=== PATIENT | male | born 1950 | race Caucasian/White ===

== ENCOUNTER → 2019-07-29 | Outpatient (CLI) | payer MEDICARE ==
[2019-07-29 08:20] LABS: African American GFR (CKD) >90 (>60 ml/min/1.73 sqM); Blood Urea Nitrogen 15 mg/dL (9-20)
--- NOTE | 2019-07-29 13:41 | CT ---
EXAMINATION TYPE: CT angio neck DATE OF EXAM: 07/29/2019 HISTORY: Carotid stenosis per order. COMPARISON: NONE CT DLP: 451 mGycm. Automated Exposure Control for Dose Reduction was Utilized. TECHNIQUE: CTA scan of the neck is performed with IV Contrast, patient injected with 65 mL of Isovue 370, axial images are obtained, coronal and sagittal reformatted images are reviewed. Three-D recons tructed images are created on an independent workstation and reviewed. FINDINGS: Carotid/Vascular Structures: Mild peripheral plaque in aortic arch . Normal 3 vessel origin from aort ic arch. Normal origin right common carotid artery from brachiocephalic artery. No significant plaque or stenosis along course of right common carotid artery. Moderate to severe plaque carotid bulb with complete occlusion of right internal carotid artery at its origin. Mild to moderate plaque extensive right external carotid artery without significant stenosis. No significant plaque or stenosis left common carotid artery. Moderate to severe calcified plaque lef t carotid bulb with luminal narrowing down to 2.6 mm with some poststenotic dilatation up to 9.2 mm a xial image 33. There is moderate mixed plaque distal to this with narrowing down to 1.7 mm AP diamete r axial image 27. Distal to this internal carotid artery reconstitutes to 4.9 mm image 20. Slight tor tuous course with mild calcified plaque in the petrous segment. There is dominant left vertebral artery with [id number] distal calcified plaque. No significant stenosis is evident. Other: Moderate to severe multilevel spurring in the cervical thoracic spine. IMPRESSION: 1. Complete occlusion right internal carotid artery at its origin. 2. Significant stenosis proximal left internal carotid artery near origin around 70% with poststenoti c dilatation. Second area of significant stenosis estimated 65% in the proximal left internal carotid artery.
== END | disposition home or self-care (01) ==
LOC: RADCTMAIN 07:33
PROVIDERS: ATTEND Thoracic Surgery (Cardiothoracic Vascular Surgery)
DX: I65.23 Occlusion and stenosis of bilateral carotid arteries (principal); I72.0 Aneurysm of carotid artery
CPT/HCPCS: 82565; 84520; 70498; 36415; Q9967

== ENCOUNTER → 2019-08-12 | Outpatient (CLI) | payer MEDICARE, OTHER ==
--- NOTE | 2019-08-12 19:40 | ECHOF ---
Referral Reason:R011 cardiac murmur MEASUREMENTS -------- HEIGHT: 180.3 cm WEIGHT: 131.5 kg BP: RVIDd: 3.0 cm (< 3.3) IVSd: 1.5 cm (0.6 - 1.1) LVIDd: 3.5 cm (3.9 - 5.3) LVPWd: 1.5 cm (0.6 - 1.1) IVSs: 2.3 cm LVIDs: 1.5 cm LVPWs: 1.9 cm LAESV Index (A-L): 15.71 ml/m Ao Diam: 2.8 cm (2.0 - 3.7) AV Cusp: 0.8 cm (1.5 - 2.6) LA Diam: 3.1 cm (2.7 - 3.8) MV EXCURSION: 9.588 mm (> 18.000) MV EF SLOPE: 65 mm/s (70 - 150) EPSS: 0.7 cm MV E Luis A: 0.70 m/s MV DecT: 151 ms MV A Luis A: 0.73 m/s MV E/A Ratio: 0.95 AV maxP.43 mmHg AV meanP.14 mmHg RAP: 5.00 mmHg RVSP: 11.42 mmHg TAPSE: 28.63 mm FINDINGS -------- Sinus rhythm. This was a technically good study. The left ventricular size is normal. There is moderate concentric left ventricular hypertrophy. O verall left ventricular systolic function is normal with, an EF between 55 - 60 %. The diastolic fi lling pattern is normal for the age of the patient 12.98. The right ventricle is normal in size. The left atrial size is normal. Normal LA size by volume 22+/-6 ml/m2. The right atrial size is normal. Aortic valve is trileaflet and is mildly thickened. There is mild aortic stenosis present. Peak/m spring gradient across the Aortic Valve is 18.43mmHg / 15.14mmHg. The mitral valve is normal. The mitral valve leaflets are mildly thickened. Mild mitral regurgita tion is present. The tricuspid valve appears structurally normal. Mild tricuspid regurgitation present. Right vent ricular systolic pressure is normal at < 35 mmHg. Trace/mild (physiologic) pulmonic regurgitation. The aortic root size is normal. Normal inferior vena cava with normal inspiratory collapse consistent with estimated right atrial pre ssure of 5 mmHg. There is no pericardial effusion. CONCLUSIONS -------- 1. Sinus rhythm. 2. This was a technically good study. 3. The left ventricular size is normal. 4. There is moderate concentric left ventricular hypertrophy. 5. Overall left ventricular systolic function is normal with, an EF between 55 - 60 %. 6. The diastolic filling pattern is normal for the age of the patient 12.98 7. The right ventricle is normal in size. 8. The left atrial size is normal. 9. Normal LA size by volume 22+/-6 ml/m2. 10. The right atrial size is normal. 11. Aortic valve is trileaflet and is mildly thickened. 12. There is mild aortic stenosis present. 13. Peak/mean gradient across the Aortic Valve is 18.43mmHg / 15.14mmHg. 14. The mitral valve is normal. 15. The mitral valve leaflets are mildly thickened. 16. Mild mitral regurgitation is present. 17. The tricuspid valve appears structurally normal. 18. Mild tricuspid regurgitation present. 19. Right ventricular systolic pressure is normal at < 35 mmHg. 20. Trace/mild (physiologic) pulmonic regurgitation. 21. The aortic root size is normal. 22. Normal inferior vena cava with normal inspiratory collapse consistent with estimated right atrial pressure of 5 mmHg. 23. There is no pericardial effusion. STITCHER TAPE CONTROLLED MACHINE: Nadeen Cervantes REINALDO
== END | disposition home or self-care (01) ==
LOC: RADECHMAIN 11:18
PROVIDERS: ATTEND Family Medicine
DX: I08.1 Rheumatic disorders of both mitral and tricuspid valves (principal)
CPT/HCPCS: 93306

== ENCOUNTER 2023-03-18 19:02 | Inpatient (IN) | payer MEDICARE, OTHER ==
[2023-03-18] MEDS ORDERED: ASPIRIN 81 MG PO STA (19:09)
[2023-03-18] MEDS ORDERED: DEXTROSE 5% IN WATER 100 ML with AMIODARONE 150 MG IV ONE (19:30)
[2023-03-18] MEDS ORDERED: AMIODARONE 360 MG in DEXTROSE 5% IN WATER 200 ML IV ONE ×2 (19:30)
--- NOTE | 2023-03-18 19:44 | XR ---
EXAMINATION TYPE: XR chest 2V DATE OF EXAM: 03/18/2023 COMPARISON: None INDICATION: Chest pain TECHNIQUE: Frontal and lateral views of the chest are obtained. FINDINGS: The heart size is mildly prominent. The pulmonary vasculature is normal. The lungs are clear. IMPRESSION: 1. No acute pulmonary process. 2. Borderline cardiomegaly
[2023-03-18] MEDS ORDERED: SODIUM CHLORIDE 0.9% 1,000 ML IV ONE (19:47)
[2023-03-18 19:52] LABS: Basophils # (A) 0.1 k/uL (0-0.2); Basophils % (A) 1 %; Eosinophils # (A) 0.3 k/uL (0-0.7); Eosinophils % (A) 3 %; HCT 47.2 % (39.0-53.0); HGB 15.2 gm/dL (13.0-17.5); Lymphocytes # (A) 2.7 k/uL (1.0-4.8); Lymphocytes % (A) 28 %; MCH 27.5 pg (25.0-35.0); MCHC 32.3 g/dL (31.0-37.0); MCV 85.2 fL (80.0-100.0); Mean Platelet Volume 7.6; Monocytes # (A) 0.9 k/uL (0-1.0); Monocytes % (A) 10 %; Neutrophils # (A) 5.3 k/uL (1.3-7.7); Neutrophils % (A) 55 %; Platelet Count 233 k/uL (150-450); RBC 5.55 m/uL (4.30-5.90); RDW 13.4 % (11.5-15.5); WBC 9.6 k/uL (3.8-10.6)
[2023-03-18 20:00] LABS: ALT 74 U/L (4-49); AST 76 U/L (17-59); African American GFR (CKD) >90 (>60 ml/min/1.73 sqM); Albumin 3.8 g/dL (3.5-5.0); Alkaline Phosphatase 61 U/L (38-126); Anion Gap 11 mmol/L; Blood Urea Nitrogen 17 mg/dL (9-20); Calcium 9.1 mg/dL (8.4-10.2); Carbon Dioxide 25 mmol/L (22-30); Chloride 101 mmol/L (98-107); Glucose 117 mg/dL (74-99); Non-African American GFR(CKD) 85 (>60 ml/min/1.73 sqM); Potassium 3.6 mmol/L (3.5-5.1); Sodium 137 mmol/L (137-145); Total Bilirubin 0.5 mg/dL (0.2-1.3); Total Protein 6.5 g/dL (6.3-8.2)
[2023-03-18 20:04] LABS: INR 1.5 (<1.2); Partial Thromboplastin Time 24.7 sec (22.0-30.0); Prothrombin Time 14.7 sec (9.0-12.0)
--- NOTE | 2023-03-18 20:52 | CT ---
EXAMINATION TYPE: CT brain wo con DATE OF EXAM: 03/18/2023 COMPARISON: None INDICATION: CPR resus DLP: 1229.4 mGycm, Automated exposure control for dose reduction was used. CONTRAST: None CT of the brain is performed utilizing 3 mm thick sections through the posterior fossa and 3 mm thick sections through the remaining calvarium. Study is performed within 24 hours of arrival to the hosp ital. No abnormal hyperdensity is present to suggest an acute intracranial hemorrhage. No mass lesion is evident. No acute infarcts are evident. Ventricles and sulci are mildly prominent for the patient age. Paranasal sinuses and mastoid air cells within the [id number] are clear. IMPRESSIONS: 1. No acute intracranial process. Follow-up MRI can be performed as clinically indicated.
--- NOTE | 2023-03-18 20:59 | ED ---
General Adult HPI - General Chief complaint: Arrhythmia/Palpitations Stated complaint: AFib Time Seen by Provider: 03/18/23 19:08 Source: patient, RN notes reviewed, old records reviewed Mode of arrival: EMS Limitations: no limitations - History of Present Illness Initial comments: Patient is a 73-year-old male who presents emergency Department complaining of a V. fib arrest. Patient had a witnessed arrest at a baseball game. Was seen his PCP earlier today and was checked out okay. Does have a history of complete occlusion of the right internal carotid artery artery. Patient has significant stenosis of the left internal carotid artery. Patient believes he may be on Coumadin.. Also has a history of hyperlipidemia and may be on blood thinning medication Coumadin. Patient also states he takes a water pill as needed. Has no other acute complaints at this time. States he remembers going to the baseball game and then suddenly he does remember anything until the ambulance ride here. He is somewhat repetitive statements. He does know who he is, where he is coming time of year. He endorses some mild chest discomfort at the site of the pacer pads were he was defibrillated by EMS. Patient was a witnessed arrest per EMS, and bystander CPR was immediately started. AED was connected and he was shocked twice and seen by the ED. EMS arrived within 5 minutes of patient initially being down, connected to their monitor and saw ventricular fibrillation and defibrillated at 200 J. The patient had return of spontaneous circulation at this time. He was alert and oriented 3. Patient did not require any medications. Total down time estimated to be between 4 and 5 minutes per EMS. Presents for further evaluation at this time. Currently has minimal complaints. Initially EMS told me that patient was not shocked by the AED but they found the and corrected her previous statement after discussion with family that the patient was shocked twice by the AED. Patient's family was able to provide more detail regarding the situation at a baseball game. He was sitting in his folding chair watching the game when suddenly his head went back and he was unresponsive. They come on the ground by standard CPR was immediately started, 911 was immediately called, an AED was applied and he was shocked a total of 2 times by the AED prior to EMS arrival. - Related Data Home Medications Medication Instructions Recorded Confirmed Atorvastatin [Lipitor] 80 mg PO DAILY 03/18/23 03/18/23 Losartan Potassium [Cozaar] 25 mg PO DAILY 03/18/23 03/18/23 Naproxen [Naprosyn] 500 mg PO BID 03/18/23 03/18/23 [place] 450mg 450 mg PO BID 03/18/23 03/18/23 Vit C/E/Zn/Coppr/Lutein/Zeaxan 1 cap PO BID 03/18/23 03/18/23 [Preservision Areds 2 Softgel] hydroCHLOROthiazide [Hydrodiuril] 25 mg PO DAILY 03/18/23 03/18/23 Allergies Allergy/AdvReac Type Severity Reaction Status Date / Time Penicillins Allergy Rash/Hives Verified 03/18/23 20:58 Review of Systems ROS Statement: Those systems with pertinent positive or pertinent negative responses have been documented in the HPI. Review of Systems: CONST: Denies fever EYES: Denies blurry vision ENT: Denies nasal congestion C/V: Endorses very mild chest pain at the site of where patient was defibrillated. RESP: Denies shortness of breath GI: Denies abdominal pain : Denies dysuria SKIN: Denies rash. MSK: Denies joint pain. NEURO: Denies headache ROS Other: All systems not noted in ROS Statement are negative. 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 HEAD: Normal with no signs of head trauma. EYES: PERRLA, EOMI, conjunctiva normal, no discharge. Pupils are 3 mm equal bilaterally. ENT: Hearing grossly intact, normal oropharynx. RESPIRATORY: Clear breath sounds bilaterally. No wheezes, rales, or rhonchi. C/V: Irregular rate and rhythm. S1 and S2 auscultated, mild peripheral edema, peripheral pulses 2+ and intact throughout ABD: Abd is soft, nontender, nondistended EXT: Normal range of motion, no obvious deformity SKIN: Patient has what appears to be a mild burn walter located over the sternum. This is where he is complaining of pain. Likely from ADD or defibrillation in the field. NEURO: Alert and oriented x 4. Cranial nerves II-XII intact. No focal sensory or strength deficits. Limitations: no limitations Course Vital Signs 03/18/23 03/18/23 03/18/23 19:02 19:07 19:10 Temperature 98.3 F Pulse Rate 135 H 106 H 115 H Pulse Rate [ Plate Inspector ] Respiratory 18 21 Rate Blood Pressure 111/86 111/86 O2 Sat by Pulse 95 95 96 Oximetry 03/18/23 03/18/23 03/18/23 19:20 19:36 19:40 Temperature Pulse Rate 107 H 99 Pulse Rate [ 115 H Plate Inspector ] Respiratory 18 Rate Blood Pressure 111/73 88/78 O2 Sat by Pulse 97 95 95 Oximetry 03/18/23 03/18/23 03/18/23 19:46 19:50 19:59 Temperature Pulse Rate 97 98 Pulse Rate [ Plate Inspector ] Respiratory 18 18 Rate Blood Pressure 89/72 105/64 O2 Sat by Pulse 96 95 97 Oximetry 03/18/23 03/18/23 03/18/23 20:00 20:30 20:40 Temperature Pulse Rate 105 H 97 Pulse Rate [ Plate Inspector ] Respiratory 14 13 Rate Blood Pressure 99/64 131/84 125/85 O2 Sat by Pulse 98 98 Oximetry 03/18/23 03/18/23 03/18/23 20:47 20:50 21:32 Temperature Pulse Rate 109 H 113 H 108 H Pulse Rate [ Plate Inspector ] Respiratory 18 15 20 Rate Blood Pressure 117/87 117/87 134/96 O2 Sat by Pulse 97 96 93 L Oximetry 03/18/23 03/18/23 23:38 23:51 Temperature Pulse Rate 89 84 Pulse Rate [ Plate Inspector ] Respiratory 18 Rate Blood Pressure 119/79 O2 Sat by Pulse 95 Oximetry Medical Decision Making - Medical Decision Making Was pt. sent in by a medical professional or institution (, PA, THREAD TWISTER, urgent care, hospital, or prison...) When possible be specific @ -No Did you speak to anyone other than the patient for history (EMS, parent, family, police, friend...)? What history was obtained from this source @ -Family, EMS provided details of the situation at the baseball field. Did you review nursing and triage notes (agree or disagree)? Why? @ -I reviewed and agree with nursing and triage notes Were old charts reviewed (outside hosp., previous admission, EMS record, old EKG, old radiological studies, urgent care reports/EKG's, prison records)? Report findings @ -Old charts reviewed. Differential Diagnosis (chest pain, altered mental status, abdominal pain women, abdominal pain men, vaginal bleeding, weakness, fever, dyspnea, syncope, headache, dizziness, GI bleed, back pain, seizure, CVA, palpatations, mental health, musculoskeletal)? @ -Differential Chest Pain: Stable Angina, Unstable Angina, STEMI, NSTEMI Aortic Dissection, Pneumothorax, Musculoskeletal, Esophageal Spasm GERD, Cholecystitis, Pancreatitis, Zoster, this is not meant to be an all-inclusive list. EKG interpreted by me (3pts min.). @ -As above X-rays interpreted by me (1pt min.). @ -Chest x-ray reveals no obvious acute cardio pulmonary process. CT interpreted by me (1pt min.). @ -CT brain shows no obvious acute intracranial process. CTA of the chest for PE negative for any obvious pulmonary embolism. U/S interpreted by me (1pt. min.). @ -None done What testing was considered but not performed or refused? (CT, X-rays, U/S, la bs)? Why? @ -None What meds were considered but not given or refused? Why? @ -None Did you discuss the management of the patient with other professionals (professionals i.e. , PA, THREAD TWISTER, lab, RT, psych nurse, social worker psychiatric, die cutter, teacher, transportation security officer, case management assistant)? Give summary @ -I discussed the case with Dr. Charles our on-call lard renderer who was in agreement with the plan. We reviewed the EKG by EMS as well as EKG obtained here in the plan for workup upon the patient's arrival.I discussed the case with the transfer physician at [facility] Dr. Correa who refused transfer. I spoke with the admitting physician Dr. Lares who accepted the admission. Was smoking cessation discussed for >3mins.? @ -No Was critical care preformed (if so, how long)? @ -Yes, 35 minutes. Were there social determinants of health that impacted care today? How? (Homelessness, low income, unemployed, alcoholism, drug addiction, transportation, low edu. Level, literacy, decrease access to med. care, skilled nursing, rehab)? @ -No Was there de-escalation of care discussed even if they declined (Discuss DNR or withdrawal of care, Hospice)? DNR status @ -No What co-morbidities impacted this encounter? (DM, HTN, Smoking, COPD, CAD, Cancer, CVA, ARF, Chemo, Hep., AIDS, mental health diagnosis, sleep apnea, morbid obesity)? @ -Hypertension, hyperlipidemia Was patient admitted / discharged? Hospital course, mention meds given and route, prescriptions, significant lab abnormalities, going to OR and other pertinent info. @ -Based on the patient's presentation and physical exam, he presents status post ventricular fibrillation arrest having EMS obtained [place] without any medications and 2 shocks by an ED as well as a fibrillation at 200 J by EMS. He currently only has mild chest discomfort over the site of the compressions as well as where he was shocked that is reproducible on palpation. Denies any other acute complaints at this time. We will obtain cardiac workup. He thinks he may be on Coumadin but is uncertain if he is still taking it. We will obtain an INR and likely obtain a CT PE at INR is subtherapeutic. He was in agreement this plan. Vital signs are within acceptable limits at this time. He'll be placed on an amiodarone drip after I discussed it with Dr. Charles the on-call lard renderer. Initial EKG is unremarkable except for new onset atrial fibrillation with RVR. He will receive a single 1 L fluid bolus. Patient was in agreement this plan. He does have repetitive answers as well as the fact that he may be on a blood thinner and may have hit his head we will obtain a CT brain. EKG showed no signs of acute ischemia. CT imaging unremarkable for any acute process. Chest x-ray unremarkable for any acute process. Patient's labs reveal a subtherapeutic INR which prompted us to obtain a CT angiogram of the chest which was negative for PE. AST and ALT are minimally elevated to 76 and 74 respectively. BNP is slightly elevated at 583. Troponin is indeterminate at 0.025. On reevaluation, patient's exam remains unchanged. Remains in atrial fibrillation and hemodynamically stable. I did update him on the results. He expressed understanding. Family also expressed understanding of the spoke with them. They did request that we attempt to transfer the patient to the [facility] for further management as he does have many of his doctors there, specifically his vascular doctor Dr. Wilmar Stauffer. I was in agreement with the plan for attempt at transfer. At this time patient will be given a dose of 324 mg of aspirin as well as started on a heparin drip for new onset A. fib as well as concerning for ACS. I spoke with patient's is now at bedside with a list of medications and patient is no longer on Coumadin as he believes he may have been taking it some time previously. I did speak with [facility] for possible transfer but they refused after discussing with Dr. Correa has patient does not follow up with cardiology there but rather vascular surgery. There are also full. I discussed this with the patient's family and the patient. They're okay with remaining here at [facility]. Patient will therefore be admitted to cardiac stepdown. We'll continue therapy with heparin, amiodarone, cardiology consult, an echo was ordered. I did speak with the admitting physician, Dr. Lares who covers for Dr. Solomon who accepted the patient. Patient was admitted in serious condition. I updated the patient as well as family members multiple times regarding this. They were in agreement with this plan. Undiagnosed new problem with uncertain prognosis? @ -No Drug Therapy requiring intensive monitoring for toxicity (Heparin, Nitro, Insulin, Cardizem)? @ -Heparin Were any procedures done? @ -No Diagnosis/symptom? @ -Ventricular fibrillation cardiac arrest status post defibrillation and ROSC in the field Acute, or Chronic, or Acute on Chronic? @ -Acute Uncomplicated (without systemic symptoms) or Complicated (systemic symptoms)? @ -Complicated Side effects of treatment? @ -No Exacerbation, Progression, or Severe Exacerbation? @ -No Poses a threat to life or bodily function? How? (Chest pain, [place], [place], pneumonia, PE, COPD, DKA, ARF, appy, cholecystitis, CVA, Diverticulitis, Homicidal, Suicidal, threat to staff... and all critical care pts) @ -Yes Diagnosis/symptom? @ -New-onset atrial fibrillation Acute, or Chronic, or Acute on Chronic? @ -Acute Uncomplicated (without systemic symptoms) or Complicated (systemic symptoms)? @ -Complicated Side effects of treatment? @ -none Exacerbation, Progression, or Severe Exacerbation] @ -no Poses a threat to life or bodily function? @ -Yes - Lab Data Result diagrams: 03/18/23 19:17 03/18/23 19:17 Lab Results 03/18/23 03/18/23 03/18/23 Range/Units 19:17 19:17 19:17 WBC 9.6 (3.8-10.6) k/uL RBC 5.55 (4.30-5.90) m/uL Hgb 15.2 (13.0-17.5) gm/dL Hct 47.2 (39.0-53.0) % MCV 85.2 (80.0-100.0) fL MCH 27.5 (25.0-35.0) pg MCHC 32.3 (31.0-37.0) g/dL RDW 13.4 (11.5-15.5) % Plt Count 233 (150-450) k/uL MPV 7.6 Neutrophils % 55 % Lymphocytes % 28 % Monocytes % 10 % Eosinophils % 3 % Basophils % 1 % Neutrophils # 5.3 (1.3-7.7) k/uL Lymphocytes # 2.7 (1.0-4.8) k/uL Monocytes # 0.9 (0-1.0) k/uL Eosinophils # 0.3 (0-0.7) k/uL Basophils # 0.1 (0-0.2) k/uL PT 14.7 H (9.0-12.0) sec INR 1.5 H (<1.2) APTT 24.7 (22.0-30.0) sec Sodium 137 (137-145) mmol/L Potassium 3.6 (3.5-5.1) mmol/L Chloride 101 (98-107) mmol/L Carbon Dioxide 25 (22-30) mmol/L Anion Gap 11 mmol/L BUN 17 (9-20) mg/dL Creatinine 0.87 (0.66-1.25) mg/dL Est GFR (CKD-EPI)AfAm >90 (>60 ml/min/1.73 sqM) Est GFR (CKD-EPI)NonAf 85 (>60 ml/min/1.73 sqM) Glucose 117 H (74-99) mg/dL Calcium 9.1 (8.4-10.2) mg/dL Magnesium 2.0 (1.6-2.3) mg/dL Total Bilirubin 0.5 (0.2-1.3) mg/dL AST 76 H (17-59) U/L ALT 74 H (4-49) U/L Alkaline Phosphatase 61 (38-126) U/L Troponin I (0.000-0.034) ng/mL NT-Pro-B Natriuret Pep pg/mL Total Protein 6.5 (6.3-8.2) g/dL Albumin 3.8 (3.5-5.0) g/dL 03/18/23 03/18/23 Range/Units 19:17 19:17 WBC (3.8-10.6) k/uL RBC (4.30-5.90) m/uL Hgb (13.0-17.5) gm/dL Hct (39.0-53.0) % MCV (80.0-100.0) fL MCH (25.0-35.0) pg MCHC (31.0-37.0) g/dL RDW (11.5-15.5) % Plt Count (150-450) k/uL MPV Neutrophils % % Lymphocytes % % Monocytes % % Eosinophils % % Basophils % % Neutrophils # (1.3-7.7) k/uL Lymphocytes # (1.0-4.8) k/uL Monocytes # (0-1.0) k/uL Eosinophils # (0-0.7) k/uL Basophils # (0-0.2) k/uL PT (9.0-12.0) sec INR (<1.2) APTT (22.0-30.0) sec Sodium (137-145) mmol/L Potassium (3.5-5.1) mmol/L Chloride (98-107) mmol/L Carbon Dioxide (22-30) mmol/L Anion Gap mmol/L BUN (9-20) mg/dL Creatinine (0.66-1.25) mg/dL Est GFR (CKD-EPI)AfAm (>60 ml/min/1.73 sqM) Est GFR (CKD-EPI)NonAf (>60 ml/min/1.73 sqM) Glucose (74-99) mg/dL Calcium (8.4-10.2) mg/dL Magnesium (1.6-2.3) mg/dL Total Bilirubin (0.2-1.3) mg/dL AST (17-59) U/L ALT (4-49) U/L Alkaline Phosphatase (38-126) U/L Troponin I 0.025 (0.000-0.034) ng/mL NT-Pro-B Natriuret Pep 583 pg/mL Total Protein (6.3-8.2) g/dL Albumin (3.5-5.0) g/dL - EKG Data -: EKG Interpreted by Me EKG Comments: 12-lead Electrocardiogram Interpretation Note EKG was reviewed and interpreted by myself. 12-lead ECG performed at 1905 is interpreted by me as revealing atrial fibrillation with RVR at a rate of 119 beats per minute. [place] is normal. QRS duration is 112 ms, QTc is 410 ms.. There were no ST or T wave abnormalities to suggest myocardial ischemia or injury. R wave progression across the precordium was satisfactory. By my interpretation this EKG is non-diagnostic for acute ischemia. No history of A. fib per patient. 12-lead Electrocardiogram Interpretation Note EKG was reviewed and interpreted by myself. 12-lead ECG performed at 2144 is interpreted by me as revealing atrial fibrillation with RVR at a rate of 101 beats per minute. [place] is normal. QRS duration is 102 ms, QTc is 410 3 ms.. There were no acute ST or T wave abnormalities to suggest myocardial ischemia or injury. R wave progression across the precordium was satisfactory. By my interpretation this EKG is non-diagnostic for acute ischemia. Disposition Clinical Impression: Atrial fibrillation, Cardiac arrest, Ventricular fibrillation Disposition: ADMITTED IP TO THIS HOSP Condition: Serious Time of Disposition: 22:20
--- NOTE | 2023-03-18 21:11 | CT ---
CT CHEST FOR PULMONARY EMBOLISM. EXAMINATION TYPE: CT chest angio for PE DATE OF EXAM: 03/18/2023 INDICATION: CPR resus CT DLP: 1113.2 mGycm, Automated exposure control for dose reduction was used. CONTRAST: Patient injected with 100 cc mL of Isovue 370. COMPARISON: None TECHNIQUE: CT of the chest is performed on a spiral scan at 2 mm thick sections. Study is performed with intravenous contrast timed for evaluation for pulmonary embolism. This will limit additional po rtions of the evaluation. 3-D MIP images reconstructed by the technologist are reviewed on the compu ter in the coronal and sagittal planes. FINDINGS: No persistent filling defects are evident to suggest an acute pulmonary embolism. No mediastinal or hilar adenopathy enlarged by CT criteria is evident. The ascending aorta diameter at the level of the main pulmonary artery is 3.9 cm. The main pulmonary artery diameter at the bifur cation is 3.0 cm. Some mild compressive atelectasis may be within the dependent portions of the lung bases. Limited CT section through the upper abdomen are unremarkable. No acute osseous abnormality is evident. No displaced rib fractures are evident. No pneumothorax is e vident. IMPRESSIONS: 1. No acute pulmonary embolism
[2023-03-18] MEDS ORDERED: HEPARIN SODIUM 1,000 UN/ML (10ML VL) IV PRN (21:37)
[2023-03-18] MEDS ORDERED: HEPARIN SODIUM 1,000 UN/ML (10ML VL) IV ONE (21:37)
[2023-03-18] MEDS ORDERED: HEPARIN SOD,PORK IN 0.45% NACL 25,000 UNIT in 0.45% NACL 1 250ML.BAG IV SCH (21:45)
[2023-03-18] MEDS ORDERED: NALOXONE 0.4 MG/ML 1 ML VIAL IV PRN (22:32)
[2023-03-18] MEDS ORDERED: POTASSIUM CHLORIDE ER 10 MEQ TAB.ER.PRT PO STA (22:52)
--- NOTE | 2023-03-19 01:00 | ED ---
Medical Decision Making - Lab Data Result diagrams: 03/18/23 19:17 03/18/23 19:17 Lab Results 03/18/23 03/18/23 03/18/23 Range/Units 19:17 19:17 19:17 WBC 9.6 (3.8-10.6) k/uL RBC 5.55 (4.30-5.90) m/uL Hgb 15.2 (13.0-17.5) gm/dL Hct 47.2 (39.0-53.0) % MCV 85.2 (80.0-100.0) fL MCH 27.5 (25.0-35.0) pg MCHC 32.3 (31.0-37.0) g/dL RDW 13.4 (11.5-15.5) % Plt Count 233 (150-450) k/uL MPV 7.6 Neutrophils % 55 % Lymphocytes % 28 % Monocytes % 10 % Eosinophils % 3 % Basophils % 1 % Neutrophils # 5.3 (1.3-7.7) k/uL Lymphocytes # 2.7 (1.0-4.8) k/uL Monocytes # 0.9 (0-1.0) k/uL Eosinophils # 0.3 (0-0.7) k/uL Basophils # 0.1 (0-0.2) k/uL PT 14.7 H (9.0-12.0) sec INR 1.5 H (<1.2) APTT 24.7 (22.0-30.0) sec Sodium 137 (137-145) mmol/L Potassium 3.6 (3.5-5.1) mmol/L Chloride 101 (98-107) mmol/L Carbon Dioxide 25 (22-30) mmol/L Anion Gap 11 mmol/L BUN 17 (9-20) mg/dL Creatinine 0.87 (0.66-1.25) mg/dL Est GFR (CKD-EPI)AfAm >90 (>60 ml/min/1.73 sqM) Est GFR (CKD-EPI)NonAf 85 (>60 ml/min/1.73 sqM) Glucose 117 H (74-99) mg/dL Calcium 9.1 (8.4-10.2) mg/dL Magnesium 2.0 (1.6-2.3) mg/dL Total Bilirubin 0.5 (0.2-1.3) mg/dL AST 76 H (17-59) U/L ALT 74 H (4-49) U/L Alkaline Phosphatase 61 (38-126) U/L Troponin I (0.000-0.034) ng/mL NT-Pro-B Natriuret Pep pg/mL Total Protein 6.5 (6.3-8.2) g/dL Albumin 3.8 (3.5-5.0) g/dL 03/18/23 03/18/23 Range/Units 19:17 19:17 WBC (3.8-10.6) k/uL RBC (4.30-5.90) m/uL Hgb (13.0-17.5) gm/dL Hct (39.0-53.0) % MCV (80.0-100.0) fL MCH (25.0-35.0) pg MCHC (31.0-37.0) g/dL RDW (11.5-15.5) % Plt Count (150-450) k/uL MPV Neutrophils % % Lymphocytes % % Monocytes % % Eosinophils % % Basophils % % Neutrophils # (1.3-7.7) k/uL Lymphocytes # (1.0-4.8) k/uL Monocytes # (0-1.0) k/uL Eosinophils # (0-0.7) k/uL Basophils # (0-0.2) k/uL PT (9.0-12.0) sec INR (<1.2) APTT (22.0-30.0) sec Sodium (137-145) mmol/L Potassium (3.5-5.1) mmol/L Chloride (98-107) mmol/L Carbon Dioxide (22-30) mmol/L Anion Gap mmol/L BUN (9-20) mg/dL Creatinine (0.66-1.25) mg/dL Est GFR (CKD-EPI)AfAm (>60 ml/min/1.73 sqM) Est GFR (CKD-EPI)NonAf (>60 ml/min/1.73 sqM) Glucose (74-99) mg/dL Calcium (8.4-10.2) mg/dL Magnesium (1.6-2.3) mg/dL Total Bilirubin (0.2-1.3) mg/dL AST (17-59) U/L ALT (4-49) U/L Alkaline Phosphatase (38-126) U/L Troponin I 0.025 (0.000-0.034) ng/mL NT-Pro-B Natriuret Pep 583 pg/mL Total Protein (6.3-8.2) g/dL Albumin (3.5-5.0) g/dL Critical Care Time Critical Care Time: Yes Total Critical Care Time: 35 Disposition Clinical Impression: Atrial fibrillation, Cardiac arrest, Ventricular fibrillation Disposition: ADMITTED IP TO THIS HOSP Condition: Serious
[2023-03-19] MEDS: AMIODARONE 450 MG in DEXTROSE 5% IN WATER 250 ML IV SCH ×4 (01:44→14:31)
--- NOTE | 2023-03-19 02:46 | P.HPIM ---
History of Present Illness H&P Date: 03/19/23 The patient is a 70-year-old male with a PMH of hypertension and hyperlipidemia who was brought into the emergency room by EMS after cardiac arrest. The patient was accompanied by his daughter and his at the bedside who supplemented the history. The patient states that he was at a baseball game earlier this evening at around 6:30 when his family noticed that he did not look quite right that he was unresponsive. The patient was noted to not have a pulse. Bystanders immediately started CPR. Upon arrival, EMS noted the patient was in V. fib. The patient was subsequently shocked by 200 J and reverted back to sinus rhythm. The patient was noted to be in A. fib however. The total down time was less than 10 minutes as per the family at the bedside. The patient woke up soon after although was confused. He reported feeling fully at his baseline at the time of interview. He denied experiencing chest discomfort, shortness of breath, fever, nausea, vomiting, abdominal pain, diarrhea. The patient denied prior cardiac history. He also denied a family history of heart disease. ED documentation reviewed and case discussed with ED provider. Chest CT in the emergency room was unremarkable.CT brain was also unremarkable. EKG revealed A. fib with RVR at 101 bpm with an incomplete right bundle branch block. Laboratory evaluation was remarkable for troponin 0.025, AST 76, ALT 74, and INR 1.5. Review of systems: Pertinent positives and negatives as discussed in HPI, a complete review of systems was performed and all other systems are negative. Physical examination: Vital signs reviewed General: non toxic, no distress, appears at stated age, obese Derm: no unusual rashes/lesions, warm Head: atraumatic, normocephalic, symmetric Eyes: EOMI, no lid lag, anicteric sclera, pupils equal round reactive to light ENT: Nose and ears atraumatic Neck: No cervical lymphadenopathy, trachea midline, supple Mouth: no lip lesion, mucus membranes moist Cardiovascular: S1S2 reg, no murmur, positive dorsalis pedis pulse bilateral, no edema Lungs: CTA bilateral, no rhonchi, no rales, no accessory muscle use Abdominal: soft, nontender to palpation, no guarding Ext: muscle strength 5 out of 5 in all 4 extremities grossly, no gross muscle atrophy, no contractures, Neuro: CN II-XI grossly intact, no gross focal neuro deficits Psych: Alert, oriented, appropriate affect Assessment: V. fib arrest status post ROSC Elevated troponin Chronic conditions: Hypertension Imaging: Chest CT in the emergency room was unremarkable.CT brain was also unremarkable. EKG revealed A. fib with RVR at 101 bpm with an incomplete right bundle branch block. Data Review: Laboratory evaluation was remarkable for troponin 0.025, AST 76, ALT 74, and INR 1.5. Plan: Continue with amiodarone infusion per protocol Trend troponin. 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, Past Surgical History: Orthopedic Surgery Additional Past Surgical History / Comment(s): Vasectomy, Past Psychological History: No Psychological Hx Reported Smoking Status: Former smoker Past Alcohol Use History: Occasional Past Drug Use History: None Reported - Past Family History Father Family Medical History: Hyperlipidemia Medications and Allergies Home Medications Medication Instructions Recorded Confirmed Type Atorvastatin [Lipitor] 80 mg PO DAILY 03/18/23 03/18/23 History Losartan Potassium [Cozaar] 25 mg PO DAILY 03/18/23 03/18/23 History Naproxen [Naprosyn] 500 mg PO BID 03/18/23 03/18/23 History Saw [place] 450mg 450 mg PO BID 03/18/23 03/18/23 History Vit C/E/Zn/Coppr/Lutein/Zeaxan 1 cap PO BID 03/18/23 03/18/23 History [Preservision Areds 2 Softgel] hydroCHLOROthiazide [Hydrodiuril] 25 mg PO DAILY 03/18/23 03/18/23 History Allergies Allergy/AdvReac Type Severity Reaction Status Date / Time Penicillins Allergy Rash/Hives Verified 03/18/23 20:58 Physical Exam Vitals: Vital Signs Temp Pulse Pulse Resp BP Pulse Ox 03/19/23 02:17 80 18 106/71 93 L 03/19/23 00:50 81 17 130/84 97 03/19/23 00:40 89 16 124/81 95 03/19/23 00:30 83 10 L 97 03/19/23 00:20 88 9 L 119/85 95 03/19/ 00:10 85 12 120/74 95 05/ 00:00 87 11 L 97 03/18/23 23:51 84 18 119/79 95 03/18/23 23:50 88 9 L 119/79 95 03/18/ 23:40 89 21 133/118 96 03/18/23 23:38 89 03/18/23 23:30 23 95 05 23:20 93 10 L 101/76 95 03/18/23 23:10 88 16 110/80 96 03/18/23 23:00 96 13 107/82 97 03/18/23 22:50 93 17 107/82 97 03/18/23 22:40 89 118/78 96 03/18/23 22:30 93 19 97 03/18/23 22:20 100 12 106/72 96 03/18/23 22:10 109 H 14 109/74 93 L 03/18/23 22:00 138 H 14 139/97 95 03/18/23 21:50 140 H 20 139/97 97 03/18/23 21:40 96 16 134/96 92 L 03/18/23 21:32 108 H 20 134/96 93 L 03/18/23 21:30 115 H 11 L 92 L 03/18/23 21:20 112 H 10 L 129/102 95 03/18/23 21:10 112 H 95 03/18/23 21:00 112 H 16 96 03/18/23 20:58 105 H 13 117/87 94 L 03/18/23 20:50 113 H 15 117/87 96 03/18/23 20:47 109 H 18 117/87 97 03/18/23 20:40 97 13 125/85 98 03/18/23 20:30 105 H 14 131/84 03/18/ 20:00 99/64 98 03/18/ 19:59 98 18 105/64 97 03/18/ 19:50 95 03/18/23 19:46 97 18 89/72 96 03/18/ 19:40 95 03/18/ 19:36 99 18 88/78 95 03/18/ 19:20 107 H 115 H 111/73 97 05 19:10 115 H 21 96 03/18/23 19:07 106 H 111/86 95 05/22/23 19:02 98.3 F 135 H 18 111/86 95 Intake and Output 03/18/23 03/18/23 03/19/23 14:59 22:59 06:59 Other: Weight 131.542 kg Results CBC & Chem 7: 03/18/23 19:17 03/18/23 19:17 Labs: Abnormal Lab Results - Last 24 Hours (Table) 03/18/23 03/18/23 03/18/23 Range/Units 19:17 19:17 23:55 PT 14.7 H (9.0-12.0) sec INR 1.5 H (<1.2) Glucose 117 H (74-99) mg/dL AST 76 H (17-59) U/L ALT 74 H (4-49) U/L Troponin I 0.407 H* (0.000-0.034) ng/mL
[2023-03-19 03:35] LABS: Basophils # (A) 0.1 k/uL (0-0.2); Basophils % (A) 1 %; Eosinophils # (A) 0.1 k/uL (0-0.7); Eosinophils % (A) 1 %; HCT 44.8 % (39.0-53.0); HGB 14.7 gm/dL (13.0-17.5); Lymphocytes # (A) 1.9 k/uL (1.0-4.8); Lymphocytes % (A) 18 %; MCHC 32.7 g/dL (31.0-37.0); MCV 85.7 fL (80.0-100.0); Mean Platelet Volume 7.2; Monocytes % (A) 9 %; Neutrophils # (A) 7.1 k/uL (1.3-7.7); Neutrophils % (A) 69 %; Platelet Count 187 k/uL (150-450); RBC 5.23 m/uL (4.30-5.90); RDW 13.5 % (11.5-15.5); WBC 10.3 k/uL (3.8-10.6)
[2023-03-19 03:40] LABS: African American GFR (CKD) >90 (>60 ml/min/1.73 sqM); Anion Gap 7 mmol/L; Blood Urea Nitrogen 15 mg/dL (9-20); Calcium 8.7 mg/dL (8.4-10.2); Carbon Dioxide 26 mmol/L (22-30); Chloride 104 mmol/L (98-107); Glucose 117 mg/dL (74-99); INR 1.1 (<1.2); Non-African American GFR(CKD) >90 (>60 ml/min/1.73 sqM); Partial Thromboplastin Time 31.5 sec (22.0-30.0); Potassium 3.9 mmol/L (3.5-5.1); Prothrombin Time 11.3 sec (9.0-12.0); Sodium 137 mmol/L (137-145)
[2023-03-19] MEDS ORDERED: ASPIRIN 325 MG TAB PO STA (08:01)
[2023-03-19] MEDS ORDERED: NITROGLYCERIN SL TABS 0.4 MG TAB SUBLINGUAL PRN ×2 (08:01→15:51)
[2023-03-19] MEDS ORDERED: ATORVASTATIN 80 MG TAB PO STA (08:01)
[2023-03-19] MEDS ORDERED: ALPRAZolam 0.25 MG TAB PO PRN (08:01)
[2023-03-19] MEDS ORDERED: ALPRAZolam 0.5 MG TAB PO PRN (08:01)
[2023-03-19] MEDS: hydroCHLOROthiazide 25 MG TAB PO SCH (08:27)
[2023-03-19] MEDS: METOPROLOL TARTRATE 12.5 MG TAB PO SCH ×2 (08:30→20:14)
[2023-03-19] MEDS ORDERED: SODIUM CHLORIDE 0.9% 1,000 ML IV SCH (08:45)
[2023-03-19] MEDS: ATORVASTATIN 80 MG TAB PO SCH (09:00)
--- NOTE | 2023-03-19 10:00 | P.CRDCN ---
History of Present Illness Consult date: 03/19/23 Reason for Consult (text): V. fib, cardiac arrest, new A. fib History of present illness: History of present illness: This is a 73-year-old with past medical history of hypertension and hyperlipidemia, right carotid artery stenosis follows with vascular surgeon yearly in [place], remote history of tobacco use. 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 We have been asked to evaluate the patient for V. fib, cardiac arrest and new A. fib. Patient is seen today in the emergency center. Patient was sitting at a [employer] game and granddaughter noted that his eyes rolled back in his head and his head went back. 911 was called and said bystanders started CPR. Downtime was maybe 10 minutes. A defibrillator was utilized and provided shock. Patient denies having any chest pain. He has not had any previous cardiac invasive procedure and denies history of diabetes. He follows with his PCP every 6 months. He quit smoking in 1992. There is a family history Brother had coronary artery disease and stents and the other brot her had atrial fibrillation. Patient is seen today in the emergency center waiting for a bed in the ICU. EKG atrial fibrillation 2 Chest x-ray: No acute pulmonary process. Borderline cardiomegaly. CT angiogram of the chest was negative for pulmonary embolism. CAT scan of the brain was negative for acute intracranial process. CBC within normal limits. INR 1.1. Electrolytes and renal function normal. AST 76, ALT 74. Troponin 0.025, 0.407 and 0.296. ProBNP 583. Home cardiac medications: Atorvastatin 80 mg daily, hydrochlorothiazide 25 mg daily, Cozaar 25 mg daily Echocardiogram 2019 revealed EF of 55-60%, moderate concentric left hypertrophy, mild aortic stenosis, mild mitral regurgitation, mild tricuspid regurgitation. Review Of Systems: At the time of my evaluation: Constitutional: No fever, no chills. No weakness, fatigue or lethargy. EENT: No headache. No dizziness. Lungs: No shortness of breath, cough, no sputum production. No wheezing. Cardiovascular: No chest pain, no lower extremity edema. No palpitations. No paroxysmal nocturnal dyspnea. No orthopnea. No lightheadedness or dizziness. No syncopal episodes. Abdominal: No abdominal pain. No nausea, vomiting. No diarrhea. No constipation. No bloody or tarry stools. Genitourinary: No dysuria.. No urinary retention. Musculoskeletal: No myalgias. No muscle weakness, no frequent falls. No back pain. No neck pain. Integumentary: No wounds. No rash. No unusual bruising. Neurologic: No aphasia. No facial droop. No change in mentation. No head injury. No headache. Physical examination: Gen: This is a morbidly obese 73-year-old male. He is resting on the ER stretcher and appears to be comfortable and in no acute distress. VS: reviewed HEENT: Head is atraumatic, normocephalic. Pupils equal, round. Sclerae is anicteric. NECK: Supple. No JVD. . LUNGS: Clear to auscultation. No wheezes or rhonchi. No intercostal retractions. HEART: Regular rate and rhythm. No murmur. ABDOMEN: Soft No tenderness. EXTREMITIES: No pedal edema. No calf tenderness. NEUROLOGICAL: Patient is awake, alert and oriented x3. Assessment: Cardiopulmonary arrest requiring CPR Suspected V. fib Status post defibrillator shock New onset atrial fibrillation Hypertension Hyperlipidemia Right carotid artery stenosis Remote history of tobacco use, quit in 1992 Plan: Patient to be on the following medications: Aspirin 81 mg daily, atorvastatin 80 mg daily, heparin drip, Lopressor 12.5 mg twice daily, hydrochlorothiazide Cardiac catheterization scheduled today with Dr. Charles. All questions from javan brian and patient have been answered. Obtain 2-D echocardiogram and Doppler study to assess cardiac structure and function Further recommendations to follow based upon clinical course Thank you kindly for this consultation. Nurse practitioner note has been reviewed, I agree with documented findings and plan of care. Patient was seen and examined. 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, Past Surgical History: Orthopedic Surgery Additional Past Surgical History / Comment(s): Vasectomy, Past Psychological History: No Psychological Hx Reported Smoking Status: Former smoker Past Alcohol Use History: Occasional Past Drug Use History: None Reported - Past Family History Father Family Medical History: Hyperlipidemia Medications and Allergies Home Medications Medication Instructions Recorded Confirmed Type Atorvastatin [Lipitor] 80 mg PO DAILY 03/18/23 03/18/23 History Losartan Potassium [Cozaar] 25 mg PO DAILY 03/18/23 03/18/23 History Naproxen [Naprosyn] 500 mg PO BID 03/18/23 03/18/23 History Saw [place] 450mg 450 mg PO BID 03/18/23 03/18/23 History Vit C/E/Zn/Coppr/Lutein/Zeaxan 1 cap PO BID 03/18/23 03/18/23 History [Preservision Areds 2 Softgel] hydroCHLOROthiazide [Hydrodiuril] 25 mg PO DAILY 03/18/23 03/18/23 History Allergies Allergy/AdvReac Type Severity Reaction Status Date / Time Penicillins Allergy Rash/Hives Verified 03/18/23 20:58 Physical Exam Vitals: Vital Signs Temp Pulse Pulse Resp BP Pulse Ox 03/19/23 06:50 71 115/71 93 L 03/19/23 06:40 78 13 107/64 94 L 03/19/23 06:30 79 16 113/71 94 L 03/19/23 06:20 75 95 03/19/23 06:10 78 13 114/71 95 03/19/23 06:00 72 15 95 03/19/23 05:50 77 12 118/72 94 L 03/19/23 05:40 78 16 115/73 95 03/19/23 05:30 76 95 03/19/23 05:20 79 19 95 03/19/23 05:10 79 101/64 96 03/19/23 05:00 74 21 91 L 03/19/23 04:52 70 21 99/66 93 L 03/19/23 04:35 76 22 105/72 90 L 03/19/23 04:20 74 20 102/66 94 L 03/19/23 04:12 76 18 105/70 95 03/19/23 04:00 74 17 96 03/19/23 03:50 75 12 109/68 95 03/19/23 03:40 75 110/72 95 03/19/23 03:30 77 18 96 03/19/23 03:20 79 13 104/65 96 03/19/23 03:10 79 12 106/68 96 03/19/23 03:00 78 16 94 L 03/19/23 02:50 83 20 121/75 95 03/19/23 02:40 77 108/73 89 L 03/19/23 02:30 71 21 87 L 03/19/23 02:20 73 20 106/71 94 L 03/19/23 02:17 80 18 106/71 93 L 03/19/23 02:10 76 20 113/70 95 03/19/23 02:00 73 14 96 03/19/23 01:50 78 18 111/67 95 03/19/23 01:40 77 9 L 123/82 94 L 03/19/23 01:30 81 17 96 03/19/23 01:20 84 15 120/77 94 L 03/19/23 01:10 84 16 143/86 94 L 03/19/23 01:00 86 16 130/84 95 03/19/23 00:50 81 17 130/84 97 03/19/23 00:40 89 16 124/81 95 03/19/23 00:30 83 10 L 97 03/19/23 00:20 88 9 L 119/85 95 03/19/23 00:10 85 12 120/74 95 03/19/23 00:00 87 11 L 97 03/18/23 23:51 84 18 119/79 95 03/18/23 23:50 88 9 L 119/79 95 03/18/23 23:40 89 21 133/118 96 03/18/23 23:38 89 05 23:30 23 95 03/18/23 23:20 93 10 L 101/76 95 03/18/23 23:10 88 16 110/80 96 03/18/23 23:00 96 13 107/82 97 03/18/23 22:50 93 17 107/82 97 03/18/23 22:40 89 118/78 96 03/18/23 22:30 93 19 97 03/18/23 22:20 100 12 106/72 96 05 22:10 109 H 14 109/74 93 L 03/18/23 22:00 138 H 14 139/97 95 03/18/23 21:50 140 H 20 139/97 97 03/18/23 21:40 96 16 134/96 92 L 03/18/23 21:32 108 H 20 134/96 93 L 05 21:30 115 H 11 L 92 L 03/18/23 21:20 112 H 10 L 129/102 95 05 21:10 112 H 95 03/18/23 21:00 112 H 16 96 03/18/23 20:58 105 H 13 117/87 94 L 03/18/23 20:50 113 H 15 117/87 96 03/18/23 20:47 109 H 18 117/87 97 03/18/23 20:40 97 13 125/85 98 03/18/23 20:30 105 H 14 131/84 03/18/23 20:00 99/64 98 03/18/23 19:59 98 18 105/64 97 03/18/23 19:50 95 03/18/23 19:46 97 18 89/72 96 03/18/23 19:40 95 03/18/23 19:36 99 18 88/78 95 03/18/23 19:20 107 H 115 H 111/73 97 03/18/23 19:10 115 H 21 96 03/18/23 19:07 106 H 111/86 95 03/18/23 19:02 98.3 F 135 H 18 111/86 95 Intake and Output 03/18/23 03/19/23 03/19/23 22:59 06:59 14:59 Intake Total 58.149 Balance 58.149 Intake: Intake, IV Titration 58.149 Amount Heparin Sod,Pork in 0.45% 58.149 NaCl 25,000 unit In 0.45 % NaCl 1 250ml.bag @ 7.6 UNITS/KG/HR 9.997 mls/hr IV .Q24H FOR[facility]LY [facility], [facility]–1983 Rx#: [id number] Other: Weight 131.542 kg Results 03/19/23 03:16 03/19/23 03:16 Cardiac Enzymes 03/18/23 03/18/23 03/18/23 Range/Units 19:17 19:17 23:55 AST 76 H (17-59) U/L Troponin I 0.025 0.407 H* (0.000-0.034) ng/mL 03/19/23 Range/Units 03:16 AST (17-59) U/L Troponin I 0.296 H* (0.000-0.034) ng/mL Coagulation 03/18/23 03/19/23 Range/Units 19:17 03:16 PT 14.7 H 11.3 (9.0-12.0) sec APTT 24.7 31.5 H (22.0-30.0) sec CBC 03/18/23 03/19/23 Range/Units 19:17 03:16 WBC 9.6 10.3 (3.8-10.6) k/uL RBC 5.55 5.23 (4.30-5.90) m/uL Hgb 15.2 14.7 (13.0-17.5) gm/dL Hct 47.2 44.8 (39.0-53.0) % Plt Count 233 187 (150-450) k/uL Comprehensive Metabolic Panel 03/18/23 03/19/23 Range/Units 19:17 03:16 Sodium 137 137 (137-145) mmol/L Potassium 3.6 3.9 (3.5-5.1) mmol/L Chloride 101 104 (98-107) mmol/L Carbon Dioxide 25 26 (22-30) mmol/L BUN 17 15 (9-20) mg/dL Creatinine 0.87 0.73 (0.66-1.25) mg/dL Glucose 117 H 117 H (74-99) mg/dL Calcium 9.1 8.7 (8.4-10.2) mg/dL AST 76 H (17-59) U/L ALT 74 H (4-49) U/L Alkaline Phosphatase 61 (38-126) U/L Total Protein 6.5 (6.3-8.2) g/dL Albumin 3.8 (3.5-5.0) g/dL Current Medications Generic Name Dose Route Start Last Admin Trade Name Freq PRN Reason Stop Dose Admin Alprazolam 0.25 mg 03/19/23 08:01 Alprazolam 0.25 Mg Tab PO Q6HR PRN Mild Anxiety Alprazolam 0.5 mg 03/19/23 08:01 Alprazolam 0.5 Mg Tab PO Q6HR PRN Moderate Anxiety Atorvastatin Calcium 80 mg 03/19/23 09:00 03/19/23 09:00 Atorvastatin 80 Mg Tab PO Not Given DAILY MAIRA Heparin Sodium (Porcine) 0 unit 03/18/23 21:37 03/19/23 04:10 Heparin Sodium 1,000 Un/Ml (10ml Vl) IV 4,000 unit PER PROTOCOL PRN Administration Low PTT Protocol Hydrochlorothiazide 25 mg 03/19/23 09:00 03/19/23 08:27 Hydrochlorothiazide 25 Mg Tab PO 25 mg DAILY MAIRA Administration Amiodarone HCl 450 mg/ 250 mls @ 16.667 mls/hr 03/19/23 01:30 03/19/23 01:44 Dextrose/Water IV 03/19/23 19:29 0.5 mg/min .Q15H MAIRA 16.667 mls/hr Administration Protocol 0.5 MG/MIN Heparin Sodium/Sodium Chloride 250 mls @ 9.997 mls/hr 03/18/23 21:45 03/19/23 04:04 25,000 unit/ Sodium Chloride IV 10.6 units/kg/hr .Q24H MAIRA 13.943 mls/hr Titration Protocol 7.6 UNITS/KG/HR Heparin Sodium (Porcine) 10, 1,001 mls @ 999 mls/hr 03/20/23 07:00 000 unit/ Sodium Chloride IRRIGATION 03/20/23 23:00 ONCE PRN INTRA-OP Heparin Sodium (Porcine) 2,500 250.5 mls @ 250 mls/hr 03/20/23 07:00 unit/ Sodium Chloride IRRIGATION 03/20/23 23:00 ONCE PRN INTRA-OP Sodium Chloride 1,000 mls @ 50 mls/hr 03/19/23 08:45 03/19/23 09:00 Saline 0.9% IV 50 mls/hr .Q20H MAIRA Administration Metoprolol Tartrate 12.5 mg 03/19/23 09:00 03/19/23 08:30 Metoprolol Tartrate 12.5 Mg Tab PO 12.5 mg BID MAIRA Administration Naloxone HCl 0.2 mg 03/18/23 22:32 Naloxone 0.4 Mg/Ml 1 Ml Vial IV Q2M PRN Opioid Reversal Nitroglycerin 0.4 mg 03/19/23 08:01 Nitroglycerin Sl Tabs 0.4 Mg Tab SUBLINGUAL Q5M PRN Chest Pain Intake and Output 03/18/23 03/19/23 03/19/23 22:59 06:59 14:59 Intake Total 58.149 Balance 58.149 Intake: Intake, IV Titration 58.149 Amount Heparin Sod,Pork in 0.45% 58.149 NaCl 25,000 unit In 0.45 % NaCl 1 250ml.bag @ 7.6 UNITS/KG/HR 9.997 mls/hr IV .Q24H FOR[facility], 1928–1983 Rx#: [id number] Other: Weight 131.542 kg 03/19/23 03:16 03/19/23 03:16
[2023-03-19 10:30] LABS: Glucose,Whole Blood 102 mg/dL (70-110)
--- NOTE | 2023-03-19 12:26 | P.CNPUL ---
History of Present Illness Consult date: 03/19/23 Requesting physician: Uzair Young Reason for consult: other (Critical care management) Chief complaint: Cardiac arrest History of present illness: This is a very pleasant 73-year-old male patient with a known history of carotid stenosis hyperlipidemia, hypertension, former smoker who was attending his great-grandsons [employer]-ball game last evening when he suddenly collapsed. Bystander CPR was initiated. Upon arrival by EMS an AED was applied and he did receive 2 shocks subsequent return of spontaneous circulation. He is brought him here to the emergency department and was at that time awake and alert and in atrial fibrillation. White count 10.3. Hemoglobin 14.7. Sodium 137. Potassium 3.9. Bicarb 26. BUN 15. Creatinine 0.73. Glucose 117. Troponins were 0.025, 0.407, 0.296. ProBNP 583. Chest x-ray revealed no acute pulmonary process. Borderline cardiomegaly. Computed tomography scan of the brain revealed no acute intracranial process. CT angiogram revealed no evidence of pulmonary embolism. He is seen today in consultation in the intensive care unit. He is awake and alert in no acute distress. He is oriented 3. He has some substernal chest discomfort. The plan is for cardiac catheterization today. He was initiated on a heparin drip, amiodarone drip currently at 0.5 mg/m and normal saline at 50 ML's per hour. He is placed on oxygen at 4 L/m per nasal ca nnula. Review of Systems REVIEW OF SYSTEMS: CONSTITUTIONAL: Denies any recent significant weight loss or weight gain. EYES: Denies change in vision. EARS, NOSE, MOUTH, THROAT: Denies headaches, denies sore throat. CARDIOVASCULAR: Positive for chest pain, no palpitations or syncopal episodes. RESPIRATORY: Denies shortness of breath, cough, congestion or hemoptysis. GASTROINTESTINAL: Denies change in appetite, denies abdominal pain GENITOURINARY: Denies hematuria, denies infections. MUSKULOSKELETAL: Denies pain, denies swelling. INTEGUMENTARY: Denies rash, denies eczema. NEUROLOGICAL: Denies recent memory loss, no recent seizure activity. PSYCHIATRIC: Denies anxiety, denies depression. HEMATOLOGIC/LYMPHATIC: Denies anemia, denies enlarged lymph nodes. 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, History of Any Multi-Drug Resistant Organisms: None Reported Past Surgical History: Orthopedic Surgery Additional Past Surgical History / Comment(s): Vasectomy, Past Anesthesia/Blood Transfusion Reactions: No Reported Reaction Past Psychological History: No Psychological Hx Reported Smoking Status: Former smoker Past Alcohol Use History: Occasional Past Drug Use History: None Reported - Past Family History Father Family Medical History: Hyperlipidemia Additional Family Medical History / Comment(s): lung cancer, emphesema Medications and Allergies Home Medications Medication Instructions Recorded Confirmed Type Atorvastatin [Lipitor] 80 mg PO DAILY 03/18/23 03/18/23 History Losartan Potassium [Cozaar] 25 mg PO DAILY 03/18/23 03/18/23 History Naproxen [Naprosyn] 500 mg PO BID 03/18/23 03/18/23 History Saw [place] 450mg 450 mg PO BID 03/18/23 03/18/23 History Vit C/E/Zn/Coppr/Lutein/Zeaxan 1 cap PO BID 03/18/23 03/18/23 History [Preservision Areds 2 Softgel] hydroCHLOROthiazide [Hydrodiuril] 25 mg PO DAILY 03/18/23 03/18/23 History Allergies Allergy/AdvReac Type Severity Reaction Status Date / Time Penicillins Allergy Rash/Hives Verified 03/18/23 20:58 Physical Exam Vitals: Vital Signs Temp Pulse Pulse Resp BP Pulse Ox 03/19/23 11:44 95 03/19/23 11:00 55 L 20 128/91 95 03/19/23 10:00 62 16 110/78 95 03/19/23 09:00 73 16 116/76 95 03/19/23 08:30 77 20 129/75 95 03/19/23 08:00 76 20 116/75 95 03/19/23 07:30 75 19 113/69 95 03/19/23 07:00 97.9 F 74 18 115/71 95 03/19/23 06:50 71 115/71 93 L 03/19/23 06:40 78 13 107/64 94 L 03/19/23 06:30 79 16 113/71 94 L 03/19/23 06:20 75 95 03/19/23 06:10 78 13 114/71 95 03/19/23 06:00 72 15 95 03/19/23 05:50 77 12 118/72 94 L 03/19/23 05:40 78 16 115/73 95 03/19/23 05:30 76 95 03/19/23 05:20 79 19 95 03/19/23 05:10 79 101/64 96 03/19/23 05:00 74 21 91 L 03/19/23 04:52 70 21 99/66 93 L 03/19/23 04:35 76 22 105/72 90 L 03/19/23 04:20 74 20 102/66 94 L 03/19/23 04:12 76 18 105/70 95 03/19/23 04:00 74 17 96 03/19/23 03:50 75 12 109/68 95 03/19/23 03:40 75 110/72 95 03/19/23 03:30 77 18 96 03/19/23 03:20 79 13 104/65 96 03/19/23 03:10 79 12 106/68 96 03/19/23 03:00 78 16 94 L 03/19/23 02:50 83 20 121/75 95 03/19/23 02:40 77 108/73 89 L 03/19/23 02:30 71 21 87 L 03/19/23 02:20 73 20 106/71 94 L 03/19/23 02:17 80 18 106/71 93 L 03/19/23 02:10 76 20 113/70 95 03/19/23 02:00 73 14 96 03/19/23 01:50 78 18 111/67 95 03/19/23 01:40 77 9 L 123/82 94 L 03/19/23 01:30 81 17 96 03/19/23 01:20 84 15 120/77 94 L 03/19/23 01:10 84 16 143/86 94 L 03/19/23 01:00 86 16 130/84 95 05 00:50 81 17 130/84 97 03/19/23 00:40 89 16 124/81 95 03/19/23 00:30 83 10 L 97 03/19/23 00:20 88 9 L 119/85 95 05 00:10 85 12 120/74 95 05 00:00 87 11 L 97 03/18/23 23:51 84 18 119/79 95 05/23 23:50 88 9 L 119/79 95 03/18/23 23:40 89 21 133/118 96 03/18/23 23:38 89 03/18/23 23:30 23 95 03/18/23 23:20 93 10 L 101/76 95 03/18/23 23:10 88 16 110/80 96 03/18/23 23:00 96 13 107/82 97 03/18/23 22:50 93 17 107/82 97 03/18/23 22:40 89 118/78 96 03/18/23 22:30 93 19 97 03/18/23 22:20 100 12 106/72 96 03/18/23 22:10 109 H 14 109/74 93 L 03/18/23 22:00 138 H 14 139/97 95 03/18/23 21:50 140 H 20 139/97 97 03/18/23 21:40 96 16 134/96 92 L 03/18/23 21:32 108 H 20 134/96 93 L 03/18/23 21:30 115 H 11 L 92 L 03/18/23 21:20 112 H 10 L 129/102 95 03/18/23 21:10 112 H 95 03/18/23 21:00 112 H 16 96 03/18/23 20:58 105 H 13 117/87 94 L 03/18/23 20:50 113 H 15 117/87 96 03/18/23 20:47 109 H 18 117/87 97 03/18/23 20:40 97 13 125/85 98 03/18/23 20:30 105 H 14 131/84 03/18/23 20:00 99/64 98 03/18/23 19:59 98 18 105/64 97 03/18/23 19:50 95 03/18/23 19:46 97 18 89/72 96 03/18/23 19:40 95 03/18/23 19:36 99 18 88/78 95 03/18/23 19:20 107 H 115 H 111/73 97 03/18/23 19:10 115 H 21 96 03/18/23 19:07 106 H 111/86 95 03/18/23 19:02 98.3 F 135 H 18 111/86 95 Intake and Output 03/18/23 03/19/23 03/19/23 22:59 06:59 14:59 Intake Total 58.149 66.6 Balance 58.149 66.6 Intake: Intake, IV Titration 58.149 66.6 Amount Amiodarone 450 mg In 16.6 Dextrose 5% in Water 250 ml @ 0.5 MG/MIN 16.667 mls/hr IV .Q15H [facility] Rx#: [id number] Heparin Sod,Pork in 0.45% 58.149 NaCl 25,000 unit In 0.45 % NaCl 1 250ml.bag @ 7.6 UNITS/KG/HR 9.997 mls/hr IV .Q24H [facility] Rx#: [id number] Sodium Chloride 0.9% 1, 50 000 ml @ 50 mls/hr IV . Q20H [facility] Rx#:[id number] Other: Weight 131.542 kg 131.542 kg GENERAL EXAM: Alert, very pleasant 73-year-old male patient, on 4 L nasal cannula, fairly comfortable in no apparent distress. HEAD: Normocephalic. EYES: Normal reaction of pupils, equal size. NOSE: Clear with pink turbinates. THROAT: No erythema or exudates. NECK: No masses, no JVD. CHEST: No chest wall deformity. LUNGS: Equal air entry with no crackles, wheeze, rhonchi or dullness. CVS: S1 and S2 normal with no audible murmur, regular rhythm. ABDOMEN: No hepatosplenomegaly, normal bowel sounds, no guarding or rigidity. SPINE: No scoliosis or deformity SKIN: No rashes CENTRAL NERVOUS SYSTEM: No focal deficits, tone is normal in all 4 extremities. EXTREMITIES: There is no peripheral edema. No clubbing, no cyanosis. Peripheral pulses are intact. Results - Laboratory Findings CBC and BMP: 03/19/23 03:16 03/19/23 03:16 PT/INR, D-dimer PT 11.3 sec (9.0-12.0) 03/19/23 03:16 INR 1.1 (<1.2) 03/19/23 03:16 Abnormal lab findings: Abnormal Labs 03/18/23 03/18/23 03/18/23 19:17 19:17 23:55 PT 14.7 H INR 1.5 H APTT Glucose 117 H AST 76 H ALT 74 H Troponin I 0.407 H* 0503/19/23 03/19/23 03:16 03:16 03:16 PT INR APTT 31.5 H Glucose 117 H AST ALT Troponin I 0.296 H* 03/19/23 10:01 PT INR APTT 50.6 H Glucose AST ALT Troponin I - Diagnostic Findings Chest x-ray: image reviewed CT scan - chest: image reviewed Assessment and Plan Assessment: Out of hospital cardiac arrest, V. fib arrest requiring defibrillation 2, received immediate bystander CPR including from one of our ICU nurses, Sabiha. He did have return of spontaneous circulation in the field. He is currently alert and oriented 3. Currently on a heparin drip. Plan is for cardiac catheterization today. CT angiogram ruled out pulmonary embolism. Computed tomography scan of the brain revealed no acute intracranial process. Atrial fibrillation with rapid ventricular response, currently on amiodarone drip Known history of complete occlusion of the right internal carotid artery at its origin, and if he can stenosis the proximal left internal carotid artery near origin around 70% with post stenotic dilatation. Second area of significant stenosis at 65% in the proximal left internal carotid artery. Noted on CT angiogram from July 2019 History of hypertension History of hyperlipidemia Former smoker Plan: The patient was seen and evaluated Chest x-ray, CT angiogram, Mi, labs and medications reviewed Currently stable and on 4 L nasal cannula Remains on heparin drip, amiodarone drip Plan is for cardiac catheterization today We'll continue to follow and make further recommendations based on his clinical status I have personally seen and examined the patient, performed the documentation and the assessment and plan as written. Number of minutes spent on the visit: 20.
[2023-03-19] MEDS ORDERED: VERAPAMIL 2.5 MG/ML 2 ML AMP ONE (14:51)
[2023-03-19] MEDS: MIDAZOLAM 2 MG/2 ML VIAL IV ONE ×2 (15:08→15:25)
[2023-03-19] MEDS ORDERED: IV FLUID CONTINUATION 750 ML IV ONE (15:09)
[2023-03-19] MEDS ORDERED: LIDOCAINE 1% INJ 10MG/ML (5 ML VIAL-PF) SQ ONE (15:11)
[2023-03-19] MEDS ORDERED: VERAPAMIL SYRINGE (5 MG/10 ML) INTRAARTER ONE (15:12)
[2023-03-19] MEDS ORDERED: CLOPIDOGREL 75 MG TAB ONE (15:19)
[2023-03-19] MEDS ORDERED: CLOPIDOGREL 75 MG TAB PO ONE (15:21)
[2023-03-19] MEDS: HEPARIN SODIUM 1,000 UN/ML (10ML VL) IV ONE ×2 (15:21→15:55)
[2023-03-19] MEDS ORDERED: niCARdipine 25 MG/10 ML VIAL ONE (15:27)
[2023-03-19] MEDS ORDERED: IOPAMIDOL-250 100ML BTL INTRAARTER ONE ×3 (15:39→15:40)
[2023-03-19] MEDS ORDERED: RX INFO: IV CONTRAST WAS GIVEN 1 EACH MISC MISCELLANE PRN (15:51)
[2023-03-19] MEDS ORDERED: MAG HYDROX/AL HYDROX/SIMETH 30 ML CUP PO PRN (15:51)
[2023-03-19] MEDS ORDERED: ZOLPIDEM 5 MG TAB PO PRN (15:51)
[2023-03-19] MEDS ORDERED: ATROPINE SULFATE 0.1 MG/ML 10ML SYRINGE IV PRN (15:51)
[2023-03-19] MEDS ORDERED: SODIUM CHLORIDE 0.9% 1,000 ML in EMPTY BAG 1 BAG IV SCH (16:00)
--- NOTE | 2023-03-19 18:01 | P.PCN ---
Date of Procedure: 03/19/23 Operative Findings: Cardiac catheterization and percutaneous coronary intervention Performing physician Dmitriy Charles MD Procedure performed 1. Selective right and left coronary angiogram 2. Left heart catheterization 3. Successful stenting of the ostial LCx using 3.0 x 15 mm Xience CATALINA with an excellent angiographic results and with adjunctive use of cardiac imaging 4. Ultrasound-guided access of the right radial artery Indication Cardiac arrest with ventricular fibrillation Complication None Level of sedation Moderate with sedation length of 42 minutes Procedure description After obtaining an informed consent the patient was brought to the cardiac supervisor laboratory. The right radial artery was cannulated using micropuncture technique under ultrasound guidance, the micropuncture wire passed easily been a place a 6 [place] sheath at the right radial artery. After that I gave the patient 2 mg of verapamil intra-arterial and 5000 his of heparin intravenous. Selective right and left coronary angiogram performed using JR4 and JL 3.5 catheters. Left heart catheterization was performed using the JR4 catheter which cross the aortic valve. After that I did intervene on the left circumflex. The procedure was completed with no complication Selective coronary angiogram The RCA is a large caliber vessel and the dominant vessel and appears to have mild disease only The left main is angiographically normal and bifurcates into LCx and LAD The LAD is a large regular vessel with mild disease only The LCx is subtotally occluded by the ostium with haziness likely related to plaque rupture Hemodynamic LVEDP was about 12 mm medically with no significant gradient across the aortic valve PCI of the LCx Anticoagulation was initiated using heparin with continuous ACT monitoring. Subsequently I did engage the left main using JL 3.5 guiding catheter. I did wire the LAD using whisper wire and the left circumflex using run-through wire. Intravascular ultrasound was unable to cross the lesion. At that point I did predilatation using 2.5 mm balloon. After that I was able to advance the intravascular ultrasound which showed a diameter of the ostial LCx about 2.5-3 mm. After that I advanced a 3.0 x 15 mm stent where the stent was positioned under fluoroscopy guidance and the stent was deployed under 12 maryann for 20 seconds. Postdilatation was performed using initially 3.0 noncompliant balloon at the balloon was unable to cross the stent but after that I was able to advance a 3.25 x 12 mm semi-compliant balloon and the balloon was inflated and the 14 maryann for 20 seconds. The following angiogram showed good angiographic result with ADELA III flow and the procedure was completed with no publication Postprocedure management Dual antiplatelet therapy using aspirin and Plavix for 12 months Risk factors modification
[2023-03-19] MEDS ORDERED: ACETAMINOPHEN TAB 325 MG TAB PO PRN (18:35)
--- NOTE | 2023-03-19 19:36 | CA ---
Transthoracic Echo Report Name: Lokesh Keen Age: 73 Gender: M : 1950 Exam Date: 03/19/2023 13:57 Exam Location: [facility] Ht (in): 70 Wt (lb): 290 Ordering Physician: Michael Diaz MD Attending/Referring Phys: Ssds Mk 2 Advanced Operator Miguelangel German Procedure CPT: Indications: vfib cardiac arrest. new onset afib Cardiac Hx: Technical Quality: Fair Contrast 1: Total Dose (mL): Contrast 2: Total Dose (mL): MEASUREMENTS (Male / Female) Normal Values 2D ECHO LV Diastolic Diameter PLAX 3.1 cm 4.2 - 5.9 / 3.9 - 5.3 cm IVS Diastolic Thickness 1.5 cm 0.6 - 1.0 / 0.6 - 0.9 cm LVPW Diastolic Thickness 2.7 cm 0.6 - 1.0 / 0.6 - 0.9 cm LV Relative Wall Thickness 1.4 RV Internal Dim ED PLAX 3.4 cm LVOT Diameter 2.2 cm Aortic Root Diameter 3.3 cm LA Systolic Diameter LX 3.2 cm 3.0 - 4.0 / 2.7 - 3.8 cm LV Diastolic Volume MOD BP 89.3 cm??? 67 - 155 / 56 - 104 cm??? LV Systolic Volume MOD BP 36.0 cm??? 22 - 58 / 19 - 49 cm??? LV Ejection Fraction MOD BP 59.7 % >= 55 % LV Diastolic Volume MOD 4C 99.7 cm??? LV Systolic Volume MOD 4C 31.9 cm??? LV Ejection Fraction MOD 4C 68.0 % LV Diastolic Length 4C 8.3 cm LV Systolic Length 4C 7.4 cm LV Diastolic Volume MOD 2C 70.4 cm??? LV Systolic Volume MOD 2C 37.6 cm??? LV Ejection Fraction MOD 2C 46.6 % LV Diastolic Length 2C 7.3 cm LV Systolic Length 2C 6.8 cm LA Volume 76.2 cm??? 18 - 58 / 22 - 52 cm??? Ascending Aorta Diameter 3.2 cm DOPPLER AV Peak Velocity 213.8 cm/s AV Peak Gradient 18.3 mmHg AV Mean Velocity 154.5 cm/s AV Mean Gradient 10.7 mmHg AV Velocity Time Integral 51.8 cm LVOT Peak Velocity 96.7 cm/s LVOT Peak Gradient 3.7 mmHg LVOT Velocity Time Integral 21.9 cm LVOT Stroke Volume 87.0 cm??? LVOT Stroke Volume Index 35.6 ml/m??? AV Area Cont Eq vti 1.7 cm??? AV Area Cont Eq pk 1.8 cm??? MR Peak Velocity 412.4 cm/s MR Peak Gradient 68.0 mmHg Mitral E Point Velocity 105.1 cm/s Mitral A Point Velocity 50.4 cm/s Mitral E to A Ratio 2.1 MV Deceleration Time 185.2 ms TR Peak Velocity 191.6 cm/s TR Peak Gradient 14.7 mmHg FINDINGS Left Ventricle Left ventricular ejection fraction is estimated at 55-60 %. Right Ventricle Upper limits of normal. Right Atrium Normal right atrial size. Left Atrium Normal left atrial size. Mitral Valve Grossly normal. Mild MR. Aortic Valve Mild to Moderate AV Calcification. Estimated AV Area by VTI= 1.7cm2 Tricuspid Valve Structurally normal tricuspid valve. Trace TR. Pulmonic Valve Pulmonic valve not well visualized. No pulmonic regurgitation. Pericardium Normal pericardium. Aorta Aortic root and proximal ascending aorta not well visualized. CONCLUSIONS Suboptimal acoustic windows Preserved LV systolic function Calcific aortic valve with [id number] aortic stenosis Previewed by: Dr. José Miguel Pope MD (Electronically Signed) Final Date: 19 Mar 2023 19:36
[2023-03-19] MEDS: LIDOCAINE 5% PATCH TOPICAL SCH (20:14)
[2023-03-20 04:39] LABS: Basophils # (A) 0.1 k/uL (0-0.2); Basophils % (A) 1 %; Eosinophils # (A) 0.4 k/uL (0-0.7); Eosinophils % (A) 3 %; HCT 43.8 % (39.0-53.0); HGB 14.3 gm/dL (13.0-17.5); Lymphocytes # (A) 1.9 k/uL (1.0-4.8); Lymphocytes % (A) 18 %; MCH 27.6 pg (25.0-35.0); MCHC 32.6 g/dL (31.0-37.0); MCV 84.9 fL (80.0-100.0); Mean Platelet Volume 7.5; Monocytes % (A) 10 %; Neutrophils # (A) 6.7 k/uL (1.3-7.7); Neutrophils % (A) 65 %; Platelet Count 197 k/uL (150-450); RBC 5.16 m/uL (4.30-5.90); RDW 13.6 % (11.5-15.5); WBC 10.3 k/uL (3.8-10.6)
[2023-03-20 04:51] LABS: African American GFR (CKD) >90 (>60 ml/min/1.73 sqM); Anion Gap 8 mmol/L; Blood Urea Nitrogen 17 mg/dL (9-20); Carbon Dioxide 25 mmol/L (22-30); Chloride 102 mmol/L (98-107); Glucose 113 mg/dL (74-99); Non-African American GFR(CKD) 85 (>60 ml/min/1.73 sqM); Potassium 3.7 mmol/L (3.5-5.1); Sodium 135 mmol/L (137-145)
[2023-03-20] MEDS ORDERED: HEPARIN SODIUM,PORCINE 10,000 UNIT in SODIUM CHLORIDE 0.9% 1,000 ML IRRIGATION PRN (07:00)
[2023-03-20] MEDS ORDERED: HEPARIN SODIUM,PORCINE (1 ML) 2,500 UNIT in SODIUM CHLORIDE 0.9% 250 ML IRRIGATION PRN (07:00)
[2023-03-20] MEDS: AMIODARONE 450 MG in DEXTROSE 5% IN WATER 250 ML IV SCH ×4 (07:27→08:17)
[2023-03-20] MEDS: METOPROLOL TARTRATE 12.5 MG TAB PO SCH ×2 (08:16→20:31)
[2023-03-20] MEDS: hydroCHLOROthiazide 25 MG TAB PO SCH (08:16)
[2023-03-20] MEDS: ATORVASTATIN 80 MG TAB PO SCH (08:16)
[2023-03-20] MEDS: ASPIRIN 81 MG PO SCH (08:16)
[2023-03-20] MEDS: LIDOCAINE 5% PATCH TOPICAL SCH (08:17)
[2023-03-20] MEDS: CLOPIDOGREL 75 MG TAB PO SCH (08:17)
--- NOTE | 2023-03-20 10:23 | P.PN ---
Subjective Progress Note Date: 03/20/23 This is a very pleasant 73-year-old male patient with a known history of carotid stenosis hyperlipidemia, hypertension, former smoker who was attending his great-grandsons T-ball game last evening when he suddenly collapsed. Bystander CPR was initiated. Upon arrival by EMS an AED was applied and he did receive 2 shocks subsequent return of spontaneous circulation. He is brought him here to the emergency department and was at that time awake and alert and in atrial fibrillation. White count 10.3. Hemoglobin 14.7. Sodium 137. Potassium 3.9. Bicarb 26. BUN 15. Creatinine 0.73. Glucose 117. Troponins were 0.025, 0.407, 0.296. ProBNP 583. Chest x-ray revealed no acute pulmonary process. Borderline cardiomegaly. Computed tomography scan of the brain revealed no acute intracranial process. CT angiogram revealed no evidence of pulmonary embolism. He is seen today in consultation in the intensive care unit. He is awake and alert in no acute distress. He is oriented 3. He has some substernal chest discomfort. The plan is for cardiac catheterization today. He was initiated on a heparin drip, amiodarone drip currently at 0.5 mg/m and normal saline at 50 ML's per hour. He is placed on oxygen at 4 L/m per nasal cannula. The patient is seen today 03/20/2023 in follow-up in the intensive care unit. He is currently sitting up in bed. Awake and alert in no acute distress. Maintaining good O2 saturations in the 90s on 2 L/m per nasal cannula. He has normal saline at 50 MLS per hour. He is continued on amiodarone drip at 0.5 mg/m. Yesterday he did undergo successful stenting of a subtotally occluded left circumflex artery near the ostium which is found to have haziness likely related to plaque rupture. He's been initiated on aspirin and Plavix. Echocardiogram revealed preserved left ventricular systolic function with an ejection fraction of 55-60%. He does have a calcified aortic valve with mild to moderate aortic stenosis. White count 10.3. Hemoglobin 14.3. Platelets 197. Sodium 135. Potassium 3.7. Bicarb 25. BUN 17. Creatinine 0.87. Glucose 113. Objective - Vital Signs Vital signs: Vital Signs Temp 97.9 F 03/20/23 08:00 Pulse 61 05/24/23 09:00 Resp 16 03/20/23 09:00 BP 110/66 03/20/23 09:00 Pulse Ox 94 L 03/20/23 09:00 FiO2 Intake & Output 03/19/23 03/20/23 03/20/23 18:59 06:59 18:59 Intake Total 3429.156 3947 438.2 Output Total 950 1000 450 Balance 310.284 245 -11.8 Weight 131 kg Intake: IV 325 285 45 Sodium Chloride 0.9% 1, 225 285 45 000 ml In Empty Bag 1 bag @ 75 mls/hr IV .[id number] [facility] Rx#:[id number] Intake, IV Titration 695.284 33.2 Amount Amiodarone 450 mg In 279.46 Dextrose 5% in Water 250 ml @ 0.5 MG/MIN 16.667 mls/hr IV .Q15H [facility] Rx#: [id number] Amiodarone 450 mg In 33.2 Dextrose 5% in Water 250 ml @ 0.5 MG/MIN 16.667 mls/hr IV .Q15H [facility] Rx#: [id number] Heparin Sod,Pork in 0.45% 140.824 NaCl 25,000 unit In 0.45 % NaCl 1 250ml.bag @ 7.6 UNITS/KG/HR 9.997 mls/hr IV .Q24H [facility] Rx#: [id number] Sodium Chloride 0.9% 1, 200 000 ml @ 50 mls/hr IV . Q20H [facility] Rx#:[id number] Sodium Chloride 0.9% 1, 75 000 ml In Empty Bag 1 bag @ 75 mls/hr IV .[id number] [facility] Rx#:[id number] Oral 240 960 360 Output: Urine 950 1000 450 Other: Voiding Method Urinal Urinal Urinal - Exam GENERAL EXAM: Alert, very pleasant 73-year-old male patient, on 2 L nasal cannula, comfortable in no apparent distress. HEAD: Normocephalic. EYES: Normal reaction of pupils, equal size. NOSE: Clear with pink turbinates. THROAT: No erythema or exudates. NECK: No masses, no JVD. CHEST: No chest wall deformity. LUNGS: Equal air entry with no crackles, wheeze, rhonchi or dullness. CVS: S1 and S2 normal with no audible murmur, regular rhythm. ABDOMEN: No hepatosplenomegaly, normal bowel sounds, no guarding or rigidity. SPINE: No scoliosis or deformity SKIN: No rashes CENTRAL NERVOUS SYSTEM: No focal deficits, tone is normal in all 4 extremities. EXTREMITIES: Right radial artery site clean. There is no peripheral edema. No clubbing, no cyanosis. Peripheral pulses are intact. - Labs CBC & Chem 7: 03/20/23 04:15 03/20/23 04:15 Labs: Abnormal Lab Results - Last 24 Hours (Table) 03/19/23 03/20/23 Range/Units 10:01 04:15 APTT 50.6 H (22.0-30.0) sec Sodium 135 L (137-145) mmol/L Glucose 113 H (74-99) mg/dL Assessment and Plan Assessment: Out of hospital cardiac arrest, V. fib arrest requiring defibrillation 2, received immediate bystander CPR including from one of our ICU nurses, Sabiha. He did have return of spontaneous circulation in the field. He is currently alert and oriented 3. CT angiogram ruled out pulmonary embolism. Computed tomography scan of the brain revealed no acute intracranial process. Coronary artery disease found to have a subtotally occluded left circumflex artery with subsequent stenting with good results on 03/19/2023. Currently on Plavix and aspirin Atrial fibrillation with rapid ventricular response, currently on amiodarone drip Known history of complete occlusion of the right internal carotid artery at its origin, and if he can stenosis the proximal left internal carotid artery near origin around 70% with post stenotic dilatation. Second area of significant stenosis at 65% in the proximal left internal carotid artery. Noted on CT angiogram from July 2019 History of hypertension History of hyperlipidemia Former smoker Plan: The patient was seen and evaluated Cardiac catheterization, echocardiogram, labs and medications reviewed Initiated on aspirin and Plavix Currently stable and on 2 L nasal cannula Remains on amiodarone drip We'll continue to follow I have personally seen and examined the patient, performed the documentation and the assessment and plan as written. Number of minutes spent on the visit: 10.
[2023-03-20] MEDS: AMIODARONE 200 MG TAB PO SCH ×2 (11:34→20:30)
--- NOTE | 2023-03-20 12:18 | P.PN ---
Subjective Progress Note Date: 03/20/23 Hospital Course: 70-year-old male with a PMH of hypertension and hyperlipidemia who was brought into the emergency room by EMS after cardiac arrest. The patient states that he was at a baseball game earlier this evening at around 6:30 when his family noticed that he did not look quite right that he was unresponsive. The patient was noted to not have a pulse. Bystanders immediately started CPR. Upon arrival, EMS noted the patient was in V. fib. The patient was subsequently shocked by 200 J and reverted back to sinus rhythm. The patient was noted to be in A. fib however. The total down time was less than 10 minutes as per the family at the bedside. The patient woke up soon after although was confused. He reported feeling fully at his baseline at the time of interview. Chest CT in the emergency room was unremarkable.CT brain was also unremarkable. EKG revealed A. fib with RVR at 101 bpm with an incomplete right bundle branch block. Laboratory evaluation was remarkable for troponin 0.025, AST 76, ALT 74, and INR 1.5. Cardiology was consulted. Pulmonology was consulted. Patient was taken to wheelabrator operator, stent placed in ostial left circumflex. Patient currently in the medical ICU. Subjective: Patient seen and examined at bedside. No acute events overnight. Currently has chest pain when coughing due to recent CPR. Denies any shortness of breath, abdominal pain, nausea, vomiting, diarrhea, constipation or urinary complaints. Pertinent positives and negatives as discussed above, a complete review of systems was performed and all other systems are negative. Vitals Signs Reviewed. General: nontoxic, no distress, appears at stated age Derm: warm, dry Head: atraumatic, normocephalic, symmetric Eyes: EOMI, no lid lag, anicteric sclera Mouth: no lip lesion, mucus membranes moist Cardiovascular: S1S2 reg, no murmur, chest tender to palpation Lungs: CTA bilateral, no rhonchi, no rales , no accessory muscle use, supplemental oxygen Abdominal: soft, nontender to palpation, no guarding, no appreciable organomegaly Ext: no gross muscle atrophy, no edema, no contractures Neuro: CN II-XI grossly intact, no focal neuro deficits Psych: Alert, oriented, appropriate affect Data Reviewed Today: Pertinent Labs: WBC 10.3, creatinine 0.87, potassium 2.7 Imaging: Echocardiogram report reviewed, preserved LV systolic function Assessment and Plan: Active: Hodan leos cardiac arrest status post defibrillation and CPR Coronary artery disease Status post left circumflex stent Elevated troponin Ischemic hepatitis History of hypertension -Cardiology following, aspirin and Plavix and atorvastatin -Amiodarone drip discontinued, on oral amiodarone -Also started on metoprolol 12.5 twice a day -Repeat CMP tomorrow -Holding antihypertensives DVT ppx: Subcu heparin Code status: Full code Anticipated discharge place: pending clincal course Anticipated discharge time: pending clincal course Objective - Vital Signs Vital signs: Vital Signs Temp 97.9 F 03/20/23 08:00 Pulse 68 03/20/23 11:00 Resp 17 03/20/23 11:00 BP 107/70 03/20/23 11:00 Pulse Ox 94 L 03/20/23 11:00 FiO2 Intake & Output 03/19/23 03/20/23 03/20/23 18:59 06:59 18:59 Intake Total 0294.868 7630 675.846 Output Total 950 1000 450 Balance 310.284 245 225.846 Weight 131 kg Intake: IV 325 285 75 Sodium Chloride 0.9% 1, 225 285 75 000 ml In Empty Bag 1 bag @ 75 mls/hr IV .[id number] [facility] Rx#:[id number] Intake, IV Titration 695.284 120.846 Amount Amiodarone 450 mg In 279.46 Dextrose 5% in Water 250 ml @ 0.5 MG/MIN 16.667 mls/hr IV .Q15H [facility] Rx#: [id number] Amiodarone 450 mg In 120.846 Dextrose 5% in Water 250 ml @ 0.5 MG/MIN 16.667 mls/hr IV .Q15H [facility] Rx#: [id number] Heparin Sod,Pork in 0.45% 140.824 NaCl 25,000 unit In 0.45 % NaCl 1 250ml.bag @ 7.6 UNITS/KG/HR 9.997 mls/hr IV .Q24H [facility] Rx#: [id number] Sodium Chloride 0.9% 1, 200 000 ml @ 50 mls/hr IV . Q20H [facility] Rx#:[id number] Sodium Chloride 0.9% 1, 75 000 ml In Empty Bag 1 bag @ 75 mls/hr IV .[id number] [facility] Rx#:[id number] Oral 240 960 480 Output: Urine 950 1000 450 Other: Voiding Method Urinal Urinal Urinal - Labs CBC & Chem 7: 03/20/23 04:15 03/20/23 04:15 Labs: Abnormal Lab Results - Last 24 Hours (Table) 03/20/23 Range/Units 04:15 Sodium 135 L (137-145) mmol/L Glucose 113 H (74-99) mg/dL
--- NOTE | 2023-03-20 13:36 | P.PN ---
Subjective Progress Note Date: 03/20/23 Principal diagnosis: Acute coronary syndrome The patient is a 73-year-old gentleman with carotid atherosclerosis as well as hypertension and dyslipidemia who was admitted to the hospital was cardiac arrest with ventricular fibrillation. That was witnessed by his family. The alexa peña came out of the cardiac arrest after he received resuscitation and shock. He underwent a heart catheterization yesterday and that showed critical disease involving the ostial/proximal LCx. He underwent successful stenting of the LCx. Also he underwent an echo which revealed preserved LV function with no significant valvular abnormalities beside mild to moderate aortic stenosis March 202022 The patient was seen and evaluated this morning. He is asymptomatic and he is hemodynamically stable. He is on dual antiplatelet therapy and anti-ischemic medications and high intensity statin. The echo as a mentioned earlier that showed preserved LV function was evidence of [id number] aortic stenosis. From a cardiac vascular standpoint of view, the patient can be transferred out o f the ICU. Meanwhile I will stop the amiodarone IV and switch him to amiodarone by mouth. Assessment Cardiac arrest was ventricular fibrillation Critical disease involving the ostial/proximal LCx Carotid atherosclerosis Aortic stenosis Hypertension Dyslipidemia Plan DC amiodarone IV and start the patient on amiodarone by mouth Continue dual antiplatelet therapy along with high intensity statin Continue anti-ischemic medication Transfer out of the intensive care unit Objective - Vital Signs Vital signs: Vital Signs Temp 98.1 F 03/20/23 12:00 Pulse 72 03/20/23 12:00 Resp 21 03/20/23 12:00 BP 112/72 03/20/23 12:00 Pulse Ox 94 L 03/20/23 12:00 FiO2 Intake & Output 03/19/23 03/20/23 03/20/23 18:59 06:59 18:59 Intake Total 1033.815 2047 795.846 Output Total 950 1000 450 Balance 310.284 245 345.846 Weight 131 kg Intake: IV 325 285 75 Sodium Chloride 0.9% 1, 225 285 75 000 ml In Empty Bag 1 bag @ 75 mls/hr IV .[id number] [facility] Rx#:[id number] Intake, IV Titration 695.284 120.846 Amount Amiodarone 450 mg In 279.46 Dextrose 5% in Water 250 ml @ 0.5 MG/MIN 16.667 mls/hr IV .Q15H [facility] Rx#: [id number] Amiodarone 450 mg In 120.846 Dextrose 5% in Water 250 ml @ 0.5 MG/MIN 16.667 mls/hr IV .Q15H [facility] Rx#: [id number] Heparin Sod,Pork in 0.45% 140.824 NaCl 25,000 unit In 0.45 % NaCl 1 250ml.bag @ 7.6 UNITS/KG/HR 9.997 mls/hr IV .Q24H [facility] Rx#: [id number] Sodium Chloride 0.9% 1, 200 000 ml @ 50 mls/hr IV . Q20H [facility] Rx#:[id number] Sodium Chloride 0.9% 1, 75 000 ml In Empty Bag 1 bag @ 75 mls/hr IV .[id number] [facility] Rx#:[id number] Oral 240 960 600 Output: Urine 950 1000 450 Other: Voiding Method Urinal Urinal Urinal # Voids 1 - Labs CBC & Chem 7: 03/20/23 04:15 03/20/23 04:15 Labs: Abnormal Lab Results - Last 24 Hours (Table) 03/20/23 Range/Units 04:15 Sodium 135 L (137-145) mmol/L Glucose 113 H (74-99) mg/dL
[2023-03-20 14:15] VITALS: BMI 41.4
[2023-03-20] MEDS: HEPARIN SODIUM,PORCINE/PF 5,000 UNIT/0.5 ML SYRINGE SQ SCH (17:08)
[2023-03-21] MEDS: HEPARIN SODIUM,PORCINE/PF 5,000 UNIT/0.5 ML SYRINGE SQ SCH ×2 (00:07→08:17)
[2023-03-21 05:20] LABS: Basophils # (A) 0.1 k/uL (0-0.2); Basophils % (A) 1 %; Eosinophils # (A) 0.4 k/uL (0-0.7); Eosinophils % (A) 4 %; HCT 45.1 % (39.0-53.0); Lymphocytes # (A) 2.2 k/uL (1.0-4.8); Lymphocytes % (A) 21 %; MCH 27.8 pg (25.0-35.0); MCHC 33.2 g/dL (31.0-37.0); MCV 83.9 fL (80.0-100.0); Mean Platelet Volume 7.6; Monocytes # (A) 0.8 k/uL (0-1.0); Monocytes % (A) 8 %; Neutrophils # (A) 6.5 k/uL (1.3-7.7); Neutrophils % (A) 63 %; Platelet Count 224 k/uL (150-450); RBC 5.37 m/uL (4.30-5.90); RDW 13.5 % (11.5-15.5); WBC 10.3 k/uL (3.8-10.6)
[2023-03-21 05:38] LABS: African American GFR (CKD) >90 (>60 ml/min/1.73 sqM); Anion Gap 6 mmol/L; Blood Urea Nitrogen 14 mg/dL (9-20); Calcium 9.1 mg/dL (8.4-10.2); Carbon Dioxide 28 mmol/L (22-30); Chloride 101 mmol/L (98-107); Glucose 104 mg/dL (74-99); Non-African American GFR(CKD) 88 (>60 ml/min/1.73 sqM); Potassium 3.9 mmol/L (3.5-5.1); Sodium 135 mmol/L (137-145)
[2023-03-21 08:16] VITALS: BP 107/78; PULSE 65; RESP 18; TEMP 97.8
[2023-03-21] MEDS: METOPROLOL TARTRATE 12.5 MG TAB PO SCH (08:17)
[2023-03-21] MEDS: AMIODARONE 200 MG TAB PO SCH (08:17)
[2023-03-21] MEDS: ASPIRIN 81 MG PO SCH (08:17)
[2023-03-21] MEDS: CLOPIDOGREL 75 MG TAB PO SCH (08:17)
[2023-03-21] MEDS: ATORVASTATIN 80 MG TAB PO SCH (08:17)
[2023-03-21] MEDS: LIDOCAINE 5% PATCH TOPICAL SCH (08:17)
--- NOTE | 2023-03-21 10:39 | P.PN ---
Subjective Progress Note Date: 03/21/23 This is a very pleasant 73-year-old male patient with a known history of carotid stenosis hyperlipidemia, hypertension, former smoker who was attending his great-grandsons T-ball game last evening when he suddenly collapsed. Bystander CPR was initiated. Upon arrival by EMS an AED was applied and he did receive 2 shocks subsequent return of spontaneous circulation. He is brought him here to the emergency department and was at that time awake and alert and in atrial fibrillation. White count 10.3. Hemoglobin 14.7. Sodium 137. Potassium 3.9. Bicarb 26. BUN 15. Creatinine 0.73. Glucose 117. Troponins were 0.025, 0.407, 0.296. ProBNP 583. Chest x-ray revealed no acute pulmonary process. Borderline cardiomegaly. Computed tomography scan of the brain revealed no acute intracranial process. CT angiogram revealed no evidence of pulmonary embolism. He is seen today in consultation in the intensive care unit. He is awake and alert in no acute distress. He is oriented 3. He has some substernal chest discomfort. The plan is for cardiac catheterization today. He was initiated on a heparin drip, amiodarone drip currently at 0.5 mg/m and normal saline at 50 ML's per hour. He is placed on oxygen at 4 L/m per nasal cannula. The patient is seen today 03/20/2023 in follow-up in the intensive care unit. He is currently sitting up in bed. Awake and alert in no acute distress. Maintaining good O2 saturations in the 90s on 2 L/m per nasal cannula. He has normal saline at 50 MLS per hour. He is continued on amiodarone drip at 0.5 mg/m. Yesterday he did undergo successful stenting of a subtotally occluded left circumflex artery near the ostium which is found to have haziness likely related to plaque rupture. He's been initiated on aspirin and Plavix. Echocardiogram revealed preserved left ventricular systolic function with an ejection fraction of 55-60%. He does have a calcified aortic valve with mild to moderate aortic stenosis. White count 10.3. Hemoglobin 14.3. Platelets 197. Sodium 135. Potassium 3.7. Bicarb 25. BUN 17. Creatinine 0.87. Glucose 113. The patient is seen today 03/21/2023 in follow-up in the intensive care unit. 3 south overflow. He is sitting up in a chair at the bedside. Awake and alert in no acute distress. Maintaining O2 saturations in the 90s on room air. No IV fluids. No chest discomfort, palpitations dizziness or lightheadedness. He's been initiated on amiodarone, aspirin, Lasix beta blockers. Continued on his Lipitor. Heparin for DVT prophylaxis. White count 10.3. Hemoglobin 15.0. Platelets 224. Sodium 135. Potassium 3.9. Bicarb 28. BUN 14. Creatinine 0.80. Glucose 104. Objective - Vital Signs Vital signs: Vital Signs Temp 97.8 F 03/21/23 08:00 Pulse 65 03/21/23 08:00 Resp 18 03/21/23 08:00 BP 107/78 03/21/23 08:00 Pulse Ox 96 03/21/23 10:09 FiO2 Intake & Output 03/20/23 03/21/23 03/21/23 18:59 06:59 18:59 Intake Total 795.846 540 Output Total 450 1360 Balance 345.846 -820 Weight 131 kg 132.8 kg Intake: IV 75 Sodium Chloride 0.9% 1, 75 000 ml In Empty Bag 1 bag @ 75 mls/hr IV .[id number] [facility] Rx#:[id number] Intake, IV Titration 120.846 Amount Amiodarone 450 mg In 120.846 Dextrose 5% in Water 250 ml @ 0.5 MG/MIN 16.667 mls/hr IV .Q15H [facility] Rx#: [id number] Oral 600 540 Output: Urine 450 1360 Other: Voiding Method Toilet Urinal # Voids 1 - Exam GENERAL EXAM: Alert, very pleasant 73-year-old male patient, up in a chair at the bedside, on room air, comfortable in no apparent distress. HEAD: Normocephalic. EYES: Normal reaction of pupils, equal size. NOSE: Clear with pink turbinates. THROAT: No erythema or exudates. NECK: No masses, no JVD. CHEST: No chest wall deformity. LUNGS: Equal air entry with no crackles, wheeze, rhonchi or dullness. CVS: S1 and S2 normal with no audible murmur, regular rhythm. ABDOMEN: No hepatosplenomegaly, normal bowel sounds, no guarding or rigidity. SPINE: No scoliosis or deformity SKIN: No rashes CENTRAL NERVOUS SYSTEM: No focal deficits, tone is normal in all 4 extremities. EXTREMITIES: Right radial artery site clean. There is no peripheral edema. No clubbing, no cyanosis. Peripheral pulses are intact. - Labs CBC & Chem 7: 03/21/23 04:52 03/21/23 04:52 Labs: Abnormal Lab Results - Last 24 Hours (Table) 03/21/23 Range/Units 04:52 Sodium 135 L (137-145) mmol/L Glucose 104 H (74-99) mg/dL Assessment and Plan Assessment: Out of hospital cardiac arrest, V. fib arrest requiring defibrillation 2, received immediate bystander CPR including from one of our ICU nurses, Sabiha. He did have return of spontaneous circulation in the field. He is currently alert and oriented 3. CT angiogram ruled out pulmonary embolism. Computed janny ography scan of the brain revealed no acute intracranial process. Coronary artery disease found to have a subtotally occluded left circumflex artery with subsequent stenting with good results on 03/19/2023. 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 Second area of significant stenosis at 65% in the proximal left internal carotid artery. Noted on CT angiogram from July 2019 History of hypertension History of hyperlipidemia Former smoker Plan: The patient was seen and evaluated Labs and medications reviewed Currently stable and on room air Home once cleared by cardiology I have personally seen and examined the patient, performed the documentation and the assessment and plan as written. Number of minutes spent on the visit: 10.
--- NOTE | 2023-03-21 11:04 | P.DS ---
Providers Date of admission: 03/18/23 22:47 Expected date of discharge: 03/21/23 Attending physician: Maribell Lares MD Consults: 03/18/23 22:32 Consult Physician Routine Consulting Provider: Yanelis Lin Consult Reason/Comments: vfib cardiac arrest. new onset afib Do you want consulting provider notified?: Already Contacted 03/19/23 09:00 Consult Physician Stat Consulting Provider: Fredrick Cota Consult Reason/Comments: vfib arrest, multiple cardioversions, needs ICU admit Do you want consulting provider notified?: Yes 03/19/23 15:51 Consult Physician Routine Consulting Provider: Yanelis Lin Consult Reason/Comments: Post Interventional patient Do you want consulting provider notified?: Already Contacted [facility] care [facility] [place] Hospital Course: Discharge Diagnosis: V. fib cardiac arrest status post defibrillation and CPR Coronary artery disease Status post left circumflex stent Elevated troponin Transaminitis History of hypertension Hospital Course: 70-year-old male with a PMH of hypertension and hyperlipidemia who was brought into the emergency room by EMS after cardiac arrest. The patient states that he was at a baseball game earlier this evening at around 6:30 when his family noticed that he did not look quite right that he was unresponsive. The patient was noted to not have a pulse. Bystanders immediately started CPR. Upon arrival, EMS noted the patient was in V. fib. The patient was subsequently shocked by 200 J and reverted back to sinus rhythm. The patient was noted to be in A. fib however. The total down time was less than 10 minutes as per the family at the bedside. The patient woke up soon after although was confused. He reported feeling fully at his baseline at the time of interview. Chest CT in the emergency room was unremarkable.CT brain was also unremarkable. EKG revealed A. fib with RVR at 101 bpm with an incomplete right bundle branch block. Laboratory evaluation was remarkable for troponin 0.025, AST 76, ALT 74, and INR 1.5. Cardiology was consulted. Pulmonology was consulted. Patient was taken to labor service representative, stent placed in ostial left circumflex. Patient remained stable. Patient being discharged on oral amiodarone, beta bea, aspirin, statin, and Plavix. Echocardiogram showed preserved LV systolic function. He will follow- up with cardiology outpatient. Patient seen and examined at bedside. Vital signs reviewed and stable. General: nontoxic, no distress, appears at stated age Derm: warm, dry Head: atraumatic, normocephalic, symmetric Eyes: EOMI, no lid lag, anicteric sclera Mouth: no lip lesion, mucus membranes moist Cardiovascular: S1S2 reg, no murmur Lungs: CTA bilateral, no rhonchi, no rales , no accessory muscle use Abdominal: soft, nontender to palpation, no guarding, no appreciable organomegaly Ext: no gross muscle atrophy, no edema, no contractures Neuro: CN II-XI grossly intact, no focal neuro deficits Psych: Alert, oriented, appropriate affect A total of 33 minutes of time were spent preparing this complex discharge summary. Patient was discharged on 03/21/23 at 1045. Patient Condition at Discharge: Serious Plan - Discharge Summary Discharge Rx Participant: No New Discharge Prescriptions: New Amiodarone [Cordarone] 400 mg PO BID #60 tab Aspirin 81 mg PO DAILY #90 tab Metoprolol Tartrate [Lopressor] 12.5 mg PO BID #90 tab Clopidogrel [Plavix] 75 mg PO DAILY #90 tab Continue Atorvastatin [Lipitor] 80 mg PO DAILY Vit C/E/Zn/Coppr/Lutein/Zeaxan [Preservision Areds 2 Softgel] 1 cap PO BID Discontinued hydroCHLOROthiazide [Hydrodiuril] 25 mg PO DAILY Saw [place]ron 450mg 450 mg PO BID Naproxen [Naprosyn] 500 mg PO BID Losartan Potassium [Cozaar] 25 mg PO DAILY Discharge Medication List Atorvastatin [Lipitor] 80 mg PO DAILY 03/18/23 [History] Vit C/E/Zn/Coppr/Lutein/Zeaxan [Preservision Areds 2 Softgel] 1 cap PO BID 03/18/23 [History] Amiodarone [Cordarone] 400 mg PO BID #60 tab 03/21/23 [Rx] Aspirin 81 mg PO DAILY #90 tab 03/21/23 [Rx] Clopidogrel [Plavix] 75 mg PO DAILY #90 tab 03/21/23 [Rx] Metoprolol Tartrate [Lopressor] 12.5 mg PO BID #90 tab 03/21/23 [Rx] Follow up Appointment(s)/Referral(s): Dmitriy Charles MD [STAFF PHYSICIAN] - 1 Week Jose Solomon DO [Primary Care Provider] - 1-2 days Activity/Diet/Wound Care/Special Instructions: Please see your apple thinner. Discharge Disposition: HOME SELF-CARE
--- NOTE | 2023-03-21 11:15 | P.PN ---
Subjective Progress Note Date: 03/21/23 Principal diagnosis: Acute coronary syndrome The patient is a 73-year-old gentleman with carotid atherosclerosis as well as hypertension and dyslipidemia who was admitted to the hospital was cardiac arrest with ventricular fibrillation. That was witnessed by his family. The alexa peña came out of the cardiac arrest after he received resuscitation and shock. He underwent a heart catheterization yesterday and that showed critical disease involving the ostial/proximal LCx. He underwent successful stenting of the LCx. Also he underwent an echo which revealed preserved LV function with no significant valvular abnormalities beside mild to moderate aortic stenosis March 202022 The patient was seen and evaluated this morning. He is asymptomatic and he is hemodynamically stable. He is on dual antiplatelet therapy and anti-ischemic medications and high intensity statin. The echo as a mentioned earlier that showed preserved LV function was evidence of [id number] aortic stenosis. From a cardiac vascular standpoint of view, the patient can be transferred out o f the ICU. Meanwhile I will stop the amiodarone IV and switch him to amiodarone by mouth. March 212022 The patient was seen and evaluated this morning he remains asymptomatic and hemodynamically stable beside mild sinus bradycardia and with that being said going to decrease the dose of amiodarone from 400 mg by mouth twice a day to 200 mg by mouth twice a day. Otherwise no chest pain and nausea shortness of breath. He would like to go home. Assessment Cardiac arrest was ventricular fibrillation Critical disease involving the ostial/proximal LCx Carotid atherosclerosis Aortic stenosis Hypertension Dyslipidemia Plan Decrease the dose of amiodarone The patient can be discharged home Objective - Vital Signs Vital signs: Vital Signs Temp 97.8 F 03/21/23 08:00 Pulse 65 03/21/23 08:00 Resp 18 03/21/23 08:00 BP 107/78 03/21/23 08:00 Pulse Ox 96 03/21/23 10:09 FiO2 Intake & Output 03/20/23 03/21/23 03/21/23 18:59 06:59 18:59 Intake Total 795.846 540 Output Total 450 1360 Balance 345.846 -820 Weight 131 kg 132.8 kg Intake: IV 75 Sodium Chloride 0.9% 1, 75 000 ml In Empty Bag 1 bag @ 75 mls/hr IV .[id number] [facility] Rx#:[id number] Intake, IV Titration 120.846 Amount Amiodarone 450 mg In 120.846 Dextrose 5% in Water 250 ml @ 0.5 MG/MIN 16.667 mls/hr IV .Q15H [facility] Rx#: [id number] Oral 600 540 Output: Urine 450 1360 Other: Voiding Method Toilet Urinal # Voids 1 - Labs CBC & Chem 7: 03/21/23 04:52 03/21/23 04:52 Labs: Abnormal Lab Results - Last 24 Hours (Table) 03/21/23 Range/Units 04:52 Sodium 135 L (137-145) mmol/L Glucose 104 H (74-99) mg/dL
[2023-03-21] MEDS ORDERED: AMIODARONE 200 MG TAB PO SCH (21:00)
== END 2023-03-21 13:07 | disposition home or self-care (01) | DRG 246 ==
LOC: EC 19:02 → 3SCARD 22:47 → 2SICU 03-19 08:17
PROVIDERS: ADMIT Internal Medicine; ATTEND Internal Medicine
PROC: 027034Z Dilation of Coronary Artery, One Artery with Drug-eluting Intraluminal Device, Percutaneous Approach (ICD-10-PCS; principal; 2023-03-19 09:30)
PROC: 4A023N7 Measurement of Cardiac Sampling and Pressure, Left Heart, Percutaneous Approach (ICD-10-PCS; 2023-03-19 09:30)
PROC: B2111ZZ Fluoroscopy of Multiple Coronary Arteries using Low Osmolar Contrast (ICD-10-PCS; 2023-03-19 09:30)
DX: I49.01 Ventricular fibrillation (principal); K72.00 Acute and subacute hepatic failure without coma; I48.91 Unspecified atrial fibrillation; I11.9 Hypertensive heart disease without heart failure; I35.0 Nonrheumatic aortic (valve) stenosis; I65.23 Occlusion and stenosis of bilateral carotid arteries; I45.10 Unspecified right bundle-branch block; R77.8 Other specified abnormalities of plasma proteins; E78.5 Hyperlipidemia, unspecified; R79.1 Abnormal coagulation profile; Z87.891 Personal history of nicotine dependence; Z86.74 Personal history of sudden cardiac arrest; Z88.0 Allergy status to penicillin; Z79.899 Other long term (current) drug therapy; Z79.1 Long term (current) use of non-steroidal anti-inflammatories (NSAID); Z82.49 Family history of ischemic heart disease and other diseases of the circulatory system
CPT/HCPCS: 36415; 70450; 71046; 71275; 80048; 80053; 83735; 83880; 84484; 85025; 85610; 85730; 92978; 93005; 93306; 93458; 96365; 96366; 96367; 96375; 99285

== ENCOUNTER → 2024-01-22 | Outpatient (CLI) | payer MEDICARE, OTHER ==
--- NOTE | 2024-01-22 21:29 | US ---
EXAMINATION TYPE: US thyroid st tissue head/neck DATE OF EXAM: 01/22/2024 COMPARISON: NONE CLINICAL INDICATION: Male, 73 years old with history of R22.1 LOCALIZED SWELLING, MASS AND LUMP, NECK ; Patient states he is just getting over bronchitis, been on steroids and antibiotics for the past 2 weeks, right neck swelling Right neck: no mass, fluid collection or enlarged lymph nodes seen IMPRESSION: 1. No discrete ultrasound abnormality
== END | disposition home or self-care (01) ==
LOC: RADUSWWP 12:45
PROVIDERS: ATTEND Family Medicine
DX: R22.1 Localized swelling, mass and lump, neck (principal)
CPT/HCPCS: 76536

== ENCOUNTER → 2024-02-13 | Outpatient (CLI) | payer MEDICARE, OTHER ==
--- NOTE | 2024-02-13 14:02 | CT ---
EXAMINATION TYPE: CT soft tissue neck wo con DATE OF EXAM: 02/13/2024 COMPARISON: 07/29/2019 HISTORY: Cutaneous abscess right neck CT DLP: 491.3 mGycm CONTRAST: Patient injected with 0 mL of Isovue 300. TECHNIQUE: Axial images at 3 mm thick sections. Reconstructed images in the coronal plane and sagitt al plane are reviewed. FINDINGS: There is thickening of the soft tissues along the inferior right lateral neck may correlate with the patient's reported cutaneous infection. The border with the sternocleidomastoid muscle is indistinct. Sternocleidomastoid muscle may be somewhat thickened compared to the left side. Depth of invasion of the infection is uncertain based on this exam. No definite fluid collection is evident however to conway ggest abscess. Limited CT sections are obtained the lung apices. The lung apices appear clear. CT neck: The torus tubarius and fossa of Rosenmuller are normal. Alternative Education Teacher spaces are normal. Visua lized Paranasal sinuses and mastoid air cells are clear. Parotid glands appear normal and symmetrical. Submandibular glands, are normal. Parapharyngeal spac es are normal. No suspicious adenopathy is evident. There are scattered small lymph nodes present bi laterally The hypopharynx appears within normal limits. Vocal cord level appear symmetrical. Thyroid as visualized is normal. Degenerative changes are within the cervical spine. Prevertebral space is normal IMPRESSION: 1. Soft tissue infection along the lateral right neck of uncertain depth. However, no deep subcutaneo us collection to suggest abscess is identified. There is some thickening of the right sternocleidomas toid muscle in relation to the contralateral side.
== END | disposition home or self-care (01) ==
LOC: RADCTMAIN 13:11
PROVIDERS: ATTEND Family Medicine
DX: L02.11 Cutaneous abscess of neck (principal); L08.9 Local infection of the skin and subcutaneous tissue, unspecified; M54.2 Cervicalgia
CPT/HCPCS: 70490